=== PATIENT | female | born 1940 | race Caucasian/White ===

== ENCOUNTER 2017-07-31 12:10 | Emergency (ER) | payer MEDICARE, OTHER ==
[~2017-07-31] VITALS: Ht 157.5 cm; Wt 76.2 kg
[~2017-07-31 12:10] MED LIST: ASPI81EC PO; FAMO20 PO; NEBI5 PO; Zofran4 MG PO; [UNRECOGNIZED DRUG - OTHER]
[2017-07-31] MEDS ORDERED: BENZ100A PO (13:39)
== END 2017-07-31 14:10 | disposition home or self-care (01) ==
LOC: ER 12:10
DX: R05 Cough (principal); Z88.6 Allergy status to analgesic agent; Z91.041 Radiographic dye allergy status; Z88.2 Allergy status to sulfonamides; Z88.5 Allergy status to narcotic agent; Z88.8 Allergy status to other drugs, medicaments and biological substances; Z79.899 Other long term (current) drug therapy
CPT/HCPCS: 99282

== ENCOUNTER → 2021-02-24 | Outpatient (CLI) | payer MEDICARE, OTHER ==
[~2021-02-24] MED LIST changes: +AMOCLA875 PO; +BENZ100A PO; +Flagyl500 MG PO
[2021-02-25 09:52] LABS: C DIFFICILE DNA POSITIVE (Negative)
== END | disposition home or self-care (01) ==
LOC: LAB 11:45 → LAB SHORT 11:45
PROVIDERS: Physician Assistant Medical
DX: R19.7 Diarrhea, unspecified (principal)
CPT/HCPCS: 87324; 87493

== ENCOUNTER 2021-02-25 15:40 | Emergency (ER) | payer MEDICARE, OTHER ==
[~2021-02-25] VITALS: Ht 157.5 cm; Wt 74.8 kg
[~2021-02-25 15:40] MED LIST changes: -AMOCLA875 PO; -Flagyl500 MG PO
[2021-02-25 16:21] LABS: BASOPHILS ABSOLUTE AUTO 0.04 K/mm3 (0.00-0.23); BASOPHILS PERCENT AUTO 0 % (0-2); EOSINOPHILS ABSOLUTE AUTO 0.28 K/mm3 (0.00-0.68); EOSINOPHILS PERCENT AUTO 2 % (0-6); Hematocrit 39.4 % (33.0-51.0); IMMATURE GRAN ABSOLUTE AUTO 0.05 K/mm3 (0.00-0.10); IMMATURE GRAN PERCENT AUTO 0 % (0-1); LYMPHOCYTES PERCENT AUTO 20 % (21-46); MONOCYTES ABSOLUTE AUTO 1.33 K/mm3 (0.16-1.47); MONOCYTES PERCENT AUTO 11 % (4-13); Mean Corpuscular HGB 32.4 pg (26.0-34.0); Mean Corpuscular Volume 98 fL (80-100); Mean Platelet Volume 10.9 fL (9.1-12.4); NEUTROPHILS ABSOLUTE AUTO 7.73 K/mm3 (1.96-9.15); NEUTROPHILS PERCENT AUTO 65 % (41-73); NRBC ABSOLUTE 0.03 K/mm3 (0.00-0.02); NRBC Auto 0.3 /100 WBC (0.0-0.2); Platelet Count 207 K/mm3 (150-400); Red Blood Cell Count 4.01 M/mm3 (3.80-5.20); White Blood Cell Count 11.83 K/mm3 (4.00-11.30)
[2021-02-25 16:49] LABS: Albumin, Blood 3.4 g/dL (3.4-5.0); Albumin/Globulin Ratio 0.8 (0.8-1.8); Bilirubin, Total 0.4 mg/dL (0.1-1.0); Bun/Creatinine Ratio 11.7 (12.0-20.0); Calcium, Blood 8.4 mg/dL (8.5-10.1); Creatinine, Blood 0.94 mg/dL (0.40-1.00); Potassium, Blood 3.7 mmol/L (3.5-5.5); Total Protein, Blood 7.4 g/dL (6.4-8.2)
[2021-02-25 17:27] LABS: Source, Urine Clean Catch
[2021-02-25 17:32] LABS: Appearance, Urine Clear (Clear); Bilirubin, Urine Neg (Neg); Blood, Urine 2+ (Neg); Color, Urine Yellow (P-Yellow); Glucose Qualitative, Urine Neg (Neg); Ketones, Urine Neg (Neg); Leukocyte Esterase, Urine Neg (Neg); Nitrite, Urine Neg (Neg); Protein, Urine 2+ (Neg); Urobilinogen, Urine NORM (Normal)
[2021-02-25 18:05] LABS: Red Blood Cells, Urine 0-2 /hpf (0-2); Squamous Epithelial Cells Rare /hpf (Few)
[2021-02-25 18:08] LABS: Bacteria Few /hpf
[2021-02-25] MEDS ORDERED: Flagyl500 MG PO (19:44)
[2021-02-25] MEDS ORDERED: AMOCLA875 PO (19:44)
== END 2021-02-25 20:01 | disposition home or self-care (01) ==
LOC: ER 15:40
PROVIDERS: Physician Assistant
DX: K52.9 Noninfective gastroenteritis and colitis, unspecified (principal); K57.30 Diverticulosis of large intestine without perforation or abscess without bleeding; Z88.6 Allergy status to analgesic agent; Z88.2 Allergy status to sulfonamides; Z88.5 Allergy status to narcotic agent; Z88.8 Allergy status to other drugs, medicaments and biological substances; Z79.899 Other long term (current) drug therapy
CPT/HCPCS: 36415; 74177; 80053; 81001; 83690; 85025; 99284-25; A9270; Q9967

== ENCOUNTER 2022-12-16 09:50 | Emergency (ER) | payer MEDICARE, OTHER ==
[~2022-12-16] VITALS: Ht 157.5 cm; Wt 76.7 kg
[~2022-12-16 09:50] MED LIST changes: +AMOCLA875 PO; +Flagyl500 MG PO
[2022-12-16 12:33] LABS: BASOPHILS ABSOLUTE AUTO 0.06 K/mm3 (0.00-0.23); BASOPHILS PERCENT AUTO 1 % (0-2); EOSINOPHILS ABSOLUTE AUTO 0.06 K/mm3 (0.00-0.68); EOSINOPHILS PERCENT AUTO 1 % (0-6); Hematocrit 26.2 % (33.0-51.0); Hemoglobin 9.2 g/dL (11.5-16.0); IMMATURE GRAN ABSOLUTE AUTO 0.18 K/mm3 (0.00-0.10); IMMATURE GRAN PERCENT AUTO 1 % (0-1); LYMPHOCYTES ABSOLUTE AUTO 1.21 K/mm3 (0.84-5.20); LYMPHOCYTES PERCENT AUTO 9 % (21-46); MONOCYTES ABSOLUTE AUTO 1.75 K/mm3 (0.16-1.47); MONOCYTES PERCENT AUTO 14 % (4-13); Mean Corpuscular HGB 32.4 pg (26.0-34.0); Mean Corpuscular HGB Conc 35.1 g/dL (31.5-36.5); Mean Corpuscular Volume 92 fL (80-100); Mean Platelet Volume 10.7 fL (9.1-12.4); NEUTROPHILS ABSOLUTE AUTO 9.75 K/mm3 (1.96-9.15); NEUTROPHILS PERCENT AUTO 75 % (41-73); NRBC ABSOLUTE 0.09 K/mm3 (0.00-0.02); NRBC Auto 0.7 /100 WBC (0.0-0.2); Platelet Count 177 K/mm3 (150-400); RDW Coefficient Variation 17.7 % (11.7-14.2); Red Blood Cell Count 2.84 M/mm3 (3.80-5.20); White Blood Cell Count 13.01 K/mm3 (4.00-11.30)
[2022-12-16 12:51] LABS: Bun/Creatinine Ratio 15.5 (12.0-20.0); Calcium, Blood 8.1 mg/dL (8.5-10.1); Creatinine, Blood 1.1 mg/dL (0.40-1.00); Potassium, Blood 4.4 mmol/L (3.5-5.5)
[2022-12-16] MEDS ORDERED: METO10 PO (13:41)
[2022-12-16] MEDS ORDERED: DOC250 PO (13:41)
[2022-12-16 14:00] VITALS: BP 113/62
[2022-12-16 14:35] LABS: Calcium, Ionized (POC) 1.04 mmol/L (1.10-1.46); Chloride (POC) 92 mmol/L (98-108); Creatinine (POC) 1.1 mg/dL (0.6-1.0); Glucose (ISTAT POC) 96 mg/dL (70-99); Hemoglobin (POC) 9.5 g/dL (12.0-16.0); Potassium (POC) 4.3 mmol/L (3.5-5.5); Sodium (POC) 123 mmol/L (135-148); Total CO2 (POC) 21 mmol/L (21-32)
[2022-12-16] MEDS ORDERED: METOPROLOL TART25 MG PO (15:09)
[2022-12-16] MEDS ORDERED: OXYC5 PO (15:10)
[2022-12-16] MEDS ORDERED: Dilaudid 2 mg Ta2 MG PO (15:10)
== END 2022-12-16 15:11 | disposition home or self-care (01) ==
LOC: ER 09:50
PROVIDERS: Emergency Medicine
DX: K91.89 Other postprocedural complications and disorders of digestive system (principal); K56.7 Ileus, unspecified; E87.1 Hypo-osmolality and hyponatremia; Z88.6 Allergy status to analgesic agent; Z88.5 Allergy status to narcotic agent; Z88.2 Allergy status to sulfonamides; Z88.8 Allergy status to other drugs, medicaments and biological substances; Z79.899 Other long term (current) drug therapy; K21.9 Gastro-esophageal reflux disease without esophagitis
CPT/HCPCS: 74018; 80047; 80048; 85014; 85025; 96361; 96374; 99284-25; J2765; J7030

== ENCOUNTER 2023-12-22 19:14 | Emergency (ER) | payer MEDICARE, OTHER ==
[~2023-12-22] VITALS: Ht 157.5 cm; Wt 72.6 kg
[~2023-12-22 19:14] MED LIST changes: +DOC250 PO; +Dilaudid 2 mg Ta2 MG PO; +METO10 PO; +METOPROLOL TART25 MG PO; +OXYC5 PO; +TRAM50 PO
[2023-12-22 20:02] LABS: BASOPHILS ABSOLUTE AUTO 0.03 K/mm3 (0.00-0.23); BASOPHILS PERCENT AUTO 0 % (0-2); EOSINOPHILS ABSOLUTE AUTO 0.33 K/mm3 (0.00-0.68); EOSINOPHILS PERCENT AUTO 3 % (0-6); Hemoglobin 12.2 g/dL (11.5-16.0); IMMATURE GRAN ABSOLUTE AUTO 0.08 K/mm3 (0.00-0.10); IMMATURE GRAN PERCENT AUTO 1 % (0-1); LYMPHOCYTES ABSOLUTE AUTO 2.52 K/mm3 (0.84-5.20); LYMPHOCYTES PERCENT AUTO 21 % (21-46); MONOCYTES PERCENT AUTO 11 % (4-13); Mean Corpuscular Volume 100 fL (80-100); Mean Platelet Volume 10.8 fL (9.1-12.4); NEUTROPHILS ABSOLUTE AUTO 7.84 K/mm3 (1.96-9.15); NEUTROPHILS PERCENT AUTO 65 % (41-73); NRBC ABSOLUTE 0.02 K/mm3 (0.00-0.02); NRBC Auto 0.2 /100 WBC (0.0-0.2); Platelet Count 233 K/mm3 (150-400); RDW Coefficient Variation 18.7 % (11.7-14.2); RDW Standard Deviation 70.3 fL (35.1-46.3)
[2023-12-22 20:27] LABS: Albumin, Blood 3.7 g/dL (3.4-5.0); Bilirubin, Total 0.5 mg/dL (0.1-1.0); Bun/Creatinine Ratio 14.2 (12.0-20.0); Calcium, Blood 8.7 mg/dL (8.5-10.1); Creatinine, Blood 1.69 mg/dL (0.40-1.00); Globulin, Blood 3.6 g/dL (2.2-4.0); Potassium, Blood 4.4 mmol/L (3.5-5.5); Total Protein, Blood 7.3 g/dL (6.4-8.2)
[2023-12-22 21:36] VITALS: BP 110/79
[2023-12-22 21:45] LABS: Source, Urine Clean Catch
[2023-12-22 21:54] LABS: Appearance, Urine Clear (Clear); Bilirubin, Urine Neg (Neg); Blood, Urine Neg (Neg); Glucose Qualitative, Urine Neg (Neg); Ketones, Urine Neg (Neg); Leukocyte Esterase, Urine Neg (Neg); Nitrite, Urine Neg (Neg); Protein, Urine Neg (Neg); Specific Gravity, Urine 1.015 (1.003-1.022); Urobilinogen, Urine NORM (Normal)
[2023-12-22 22:08] LABS: Color, Urine Pale Yellow (P-Yellow)
[2023-12-22] MEDS ORDERED: NS 1,000 ML IV SCH (22:40)
[2023-12-22] MEDS ORDERED: Amoxicillin/Clavulanate K 875 MG Tab PO ONE (23:05)
[2023-12-22] MEDS ORDERED: RX Prepack 2 Tabs Ondansetron ODT 4MG UD ONE (23:05)
[2023-12-22] MEDS ORDERED: AMOCLA875 PO (23:06)
[2023-12-22] MEDS ORDERED: ONDA4ODT MM (23:06)
[2023-12-22] MEDS ORDERED: METR500 PO (23:33)
== END 2023-12-22 23:36 | disposition home or self-care (01) ==
LOC: ER 19:14
PROVIDERS: Physician Assistant
DX: K57.32 Diverticulitis of large intestine without perforation or abscess without bleeding (principal); Z88.6 Allergy status to analgesic agent; Z88.8 Allergy status to other drugs, medicaments and biological substances; Z88.2 Allergy status to sulfonamides; Z88.5 Allergy status to narcotic agent; Z79.899 Other long term (current) drug therapy; K21.9 Gastro-esophageal reflux disease without esophagitis
CPT/HCPCS: 74176; 80053; 81003; 83690; 85025; 99284-25; A9270

== ENCOUNTER 2024-01-19 08:21 | Emergency (ER) | payer MEDICARE, OTHER ==
[~2024-01-19] VITALS: Ht 157.5 cm; Wt 69.4 kg
[~2024-01-19 08:21] MED LIST changes: +METR500 PO; +ONDA4ODT MM
[2024-01-19 09:33] LABS: BASOPHILS ABSOLUTE AUTO 0.03 K/mm3 (0.00-0.23); BASOPHILS PERCENT AUTO 0 % (0-2); EOSINOPHILS ABSOLUTE AUTO 0.29 K/mm3 (0.00-0.68); EOSINOPHILS PERCENT AUTO 3 % (0-6); Hematocrit 37.6 % (33.0-51.0); Hemoglobin 12.4 g/dL (11.5-16.0); IMMATURE GRAN ABSOLUTE AUTO 0.05 K/mm3 (0.00-0.10); IMMATURE GRAN PERCENT AUTO 1 % (0-1); LYMPHOCYTES ABSOLUTE AUTO 2.37 K/mm3 (0.84-5.20); LYMPHOCYTES PERCENT AUTO 26 % (21-46); MONOCYTES PERCENT AUTO 11 % (4-13); Mean Corpuscular HGB 32.1 pg (26.0-34.0); Mean Corpuscular Volume 97 fL (80-100); Mean Platelet Volume 11.2 fL (9.1-12.4); NEUTROPHILS ABSOLUTE AUTO 5.41 K/mm3 (1.96-9.15); NEUTROPHILS PERCENT AUTO 59 % (41-73); NRBC ABSOLUTE 0.04 K/mm3 (0.00-0.02); NRBC Auto 0.4 /100 WBC (0.0-0.2); Platelet Count 265 K/mm3 (150-400); RDW Coefficient Variation 18.2 % (11.7-14.2); RDW Standard Deviation 65.2 fL (35.1-46.3); Red Blood Cell Count 3.86 M/mm3 (3.80-5.20); White Blood Cell Count 9.15 K/mm3 (4.00-11.30)
[2024-01-19] MEDS ORDERED: NS 1,000 ML IV SCH (09:45)
[2024-01-19 09:59] LABS: Albumin, Blood 3.7 g/dL (3.4-5.0); Albumin/Globulin Ratio 1.1 (0.8-1.8); Bilirubin, Total 0.4 mg/dL (0.1-1.0); Creatinine, Blood 1.08 mg/dL (0.40-1.00); Globulin, Blood 3.5 g/dL (2.2-4.0); Potassium, Blood 4.2 mmol/L (3.5-5.5); Total Protein, Blood 7.2 g/dL (6.4-8.2)
[2024-01-19 11:32] LABS: Source, Urine Clean Catch
[2024-01-19 11:45] LABS: Appearance, Urine Clear (Clear); Bilirubin, Urine Neg (Neg); Blood, Urine Neg (Neg); Color, Urine Yellow (P-Yellow); Glucose Qualitative, Urine Neg (Neg); Ketones, Urine Neg (Neg); Leukocyte Esterase, Urine Neg (Neg); Nitrite, Urine Neg (Neg); Protein, Urine Neg (Neg); Urobilinogen, Urine NORM (Normal)
[2024-01-19] MEDS ORDERED: DICY20 PO (12:30)
[2024-01-19 12:34] VITALS: BP 106/69
== END 2024-01-19 12:39 | disposition home or self-care (01) ==
LOC: ER 08:21
PROVIDERS: Student in an Organized Health Care Education/Training Program
DX: K52.9 Noninfective gastroenteritis and colitis, unspecified (principal); Z88.8 Allergy status to other drugs, medicaments and biological substances; Z88.5 Allergy status to narcotic agent; Z88.2 Allergy status to sulfonamides; Z79.899 Other long term (current) drug therapy
CPT/HCPCS: 74177; 80053; 81003; 83690; 85025; 99284-25; J7030; Q9967

== ENCOUNTER 2024-04-30 12:30 | Inpatient (IN) | payer MEDICARE, OTHER ==
[~2024-04-30] VITALS: Ht 157.5 cm; Wt 73.4 kg
[~2024-04-30 12:30] MED LIST changes: +DICY20 PO; +GABA100 PO; +Prinivil10 MG PO
[2024-05-21] MEDS ORDERED: FAMO20 PO (18:01)
[2024-05-23] VITALS (15 sets, daily range): BP systolic 93–126; BP diastolic 59–84
[2024-05-23] MEDS ORDERED: OxyCODONE HCL 10 MG TABCR PO SCH (12:55)
[2024-05-23] MEDS ORDERED: Chlorhexidine Mouth Care 15 ML UDC MT SCH (12:55)
[2024-05-23] MEDS ORDERED: CeFAZolin Sodium 2,000 MG in NS 100 ML IV SCH ×2 (12:55→23:30)
[2024-05-23] MEDS ORDERED: Acetaminophen 500 MG Tab PO SCH (12:55)
[2024-05-23] MEDS ORDERED: Lactated Ringer's 1,000 ML IV SCH ×2 (12:55→16:25)
[2024-05-23] MEDS ORDERED: Ropivacaine 0.5% HCl/Pf 123.125 MG,EPINEPHrine HCL 0.25 MG,Ketorolac Tromethamine 15 MG... INFIL SCH (12:55)
[2024-05-23] MEDS ORDERED: Tranexamic Acid 100 ML IV SCH (13:04)
[2024-05-23] MEDS ORDERED: CeFAZolin Sodium 2,000 MG VIAL ONE (14:38)
--- NOTE | 2024-05-23 14:40 | NUR ---
DR ROSA VERBALIZED OK FOR JOINT COCKTAIL WITH TORADOL EVEN WITH ASA HIVE ALLERGY, PHARMACY NOTIFIED
[2024-05-23] MEDS ORDERED: FentaNYL Citrate 50 MCG/ML 2 ML Injection ONE (14:59)
[2024-05-23] MEDS ORDERED: Midazolam HCl 1MG / ML 2ML Vial ONE (14:59)
[2024-05-23] MEDS ORDERED: Dexamethasone Sod Phos 10 MG/ML 1ML VIAL ONE (15:01)
[2024-05-23] MEDS ORDERED: propofoL 100 ML IV ONE (15:01)
[2024-05-23] MEDS ORDERED: Ondansetron HCl 2 MG / ML 2ML Vial ONE (15:01)
[2024-05-23] MEDS ORDERED: Bupivacaine 0.75%/Dext 8.25% 2 ML Amp IT ONE (15:02)
[2024-05-23] MEDS ORDERED: FentaNYL Citrate 50 MCG/ML 2 ML Injection IV PRN ×3 (15:45→15:50)
[2024-05-23] MEDS ORDERED: HYDROmorphone HCl/Pf 1MG SYR IV PRN ×2 (15:50→16:20)
[2024-05-23] MEDS ORDERED: Phenylephrine HCl 100 MCG/ML-NS 10MLSYR (1MG/10ML) ONE (16:09)
[2024-05-23] MEDS ORDERED: FLU VACC TS2024-25(6MOS UP)/PF 45 MCG/0.5 ML SYRINGE IM SCH (16:20)
[2024-05-23] MEDS ORDERED: DiphenhydrAMINE HCL 25 MG Cap PO PRN (16:20)
[2024-05-23] MEDS ORDERED: Promethazine HCl 25 MG Tab PO PRN (16:20)
[2024-05-23] MEDS ORDERED: Bisacodyl 10 MG Supp PR PRN (16:20)
[2024-05-23] MEDS ORDERED: Ondansetron HCl 2 MG / ML 2ML Vial IV PRN (16:25)
[2024-05-23] MEDS ORDERED: Metoclopramide HCl 5MG / ML 2ML Vial IV PRN (16:25)
[2024-05-23] MEDS ORDERED: Magnesium Hydroxide Conc 10 ML UDC PO PRN (16:25)
[2024-05-23] MEDS ORDERED: HYDROmorphone HCl 2 MG Tab PO PRN (16:25)
--- NOTE | 2024-05-23 18:25 | NUR ---
POST-OP ARRIVAL TO ROOM @1750, VITALS STARTED. IV RUNNING. DECREASED SENSATION TO BILAT LE, DENIES PAIN. AQUACEL AND MARIJA WRAP TO R KNEE, C/D/I. TOLERATING SIPS OF CL. DID GIVE ONE DOSE OF REGLAN TO PREVENT NAUSEA. PATIENT RESTING AT THIS TIME. 2L NC, SATS ABOVE 93%. CALL LIGHT IS IN REACH.
[2024-05-23] MEDS ORDERED: Docusate Sodium 100 MG Cap PO SCH (21:00)
[2024-05-23] MEDS ORDERED: Gabapentin 100 MG Cap PO SCH (21:00)
[2024-05-24] MEDS ORDERED: Acetaminophen 500 MG Tab PO SCH
[2024-05-24 04:56] VITALS: BP 109/78
[2024-05-24 05:05] LABS: BASOPHILS PERCENT AUTO 0 % (0-2); EOSINOPHILS PERCENT AUTO 0 % (0-6); Hematocrit 30.4 % (33.0-51.0); Hemoglobin 9.9 g/dL (11.5-16.0); IMMATURE GRAN ABSOLUTE AUTO 0.03 K/mm3 (0.00-0.10); IMMATURE GRAN PERCENT AUTO 1 % (0-1); LYMPHOCYTES ABSOLUTE AUTO 0.86 K/mm3 (0.84-5.20); LYMPHOCYTES PERCENT AUTO 13 % (21-46); MONOCYTES ABSOLUTE AUTO 0.19 K/mm3 (0.16-1.47); MONOCYTES PERCENT AUTO 3 % (4-13); Mean Corpuscular HGB 31.9 pg (26.0-34.0); Mean Corpuscular HGB Conc 32.6 g/dL (31.5-36.5); Mean Corpuscular Volume 98 fL (80-100); Mean Platelet Volume 11.7 fL (9.1-12.4); NEUTROPHILS ABSOLUTE AUTO 5.58 K/mm3 (1.96-9.15); NEUTROPHILS PERCENT AUTO 84 % (41-73); Platelet Count 205 K/mm3 (150-400); RDW Coefficient Variation 18.1 % (11.7-14.2); RDW Standard Deviation 66.8 fL (35.1-46.3); White Blood Cell Count 6.66 K/mm3 (4.00-11.30)
--- NOTE | 2024-05-24 05:25 | NUR ---
SHIFT SUMMARY KWAN WAS ALERT AND FULLY ORIENTED ON ASSESMENT. DRESSING C/D/I, PAIN WELL MANAGED. PT AMBULATING AND VOIDING APPROPRIATELY. CIRCULATION AND SENSATION INTACT TO FEET. NO ACUTE EVENTS NO NOTED CHANGES TO PT CONDITION
[2024-05-24 05:59] LABS: Bun/Creatinine Ratio 23.4 (12.0-20.0); Calcium, Blood 8.6 mg/dL (8.5-10.1); Creatinine, Blood 1.24 mg/dL (0.40-1.00); Potassium, Blood 5.9 mmol/L (3.5-5.5)
[2024-05-24 07:33] VITALS: BP 96/61
[2024-05-24 08:22] VITALS: BP 102/72
[2024-05-24] MEDS ORDERED: Metoprolol Tartrate 25 MG Tab PO SCH (09:00)
[2024-05-24] MEDS ORDERED: Aspirin 81 MG Chew PO SCH (09:00)
[2024-05-24] MEDS ORDERED: Lisinopril 10 MG Tab PO SCH (09:00)
[2024-05-24] MEDS ORDERED: Famotidine 20 MG Tab PO SCH (09:00)
[2024-05-24] MEDS ORDERED: ASPI81CH PO (09:20)
--- NOTE | 2024-05-24 10:38 | NUR ---
DISCHARGE PT EDUCATED ON AND RECEIVED PRINTED DC INSTRUCTIONS AND VERBALIZED AN UNDERSTANDING. IV DC'D. EXTRA DRESSINGS GIVEN TO PT. PT GATHERED ALL PERSONAL BELONGINGS AND ESCORTED OUT VIA W/C TO VEHICLE. TO TAKE PT HOME.
[2024-05-25] MEDS ORDERED: HYDMOR2 PO (15:10)
[2024-05-25] MEDS ORDERED: ONDA4ODT MM (15:10)
== END 2024-05-24 10:33 | disposition home or self-care (01) | DRG 489 ==
LOC: PRE IP 05-14 10:00 → MEDS 05-23 13:48 → SURS 05-23 14:05
PROVIDERS: ADMIT Orthopaedic Surgery
PROC: 0SPC09Z Removal of Liner from Right Knee Joint, Open Approach (ICD-10-PCS; 2024-05-23)
PROC: 0SUV09Z Supplement Right Knee Joint, Tibial Surface with Liner, Open Approach (ICD-10-PCS; 2024-05-23)
PROC: 0SBC0ZZ Excision of Right Knee Joint, Open Approach (ICD-10-PCS; principal; 2024-05-23 15:00)
DX: M24.661 Ankylosis, right knee (principal); I10 Essential (primary) hypertension; K21.9 Gastro-esophageal reflux disease without esophagitis; Z96.651 Presence of right artificial knee joint; Z88.8 Allergy status to other drugs, medicaments and biological substances; Z88.5 Allergy status to narcotic agent
CPT/HCPCS: 36415; 73560-RT; 80048; 85025; 97110; 97116; 97530; A9270; C1776; J0171; J0690; J0735; J1100; J1885; J2250; J2371; J2405; J2704; J2765; J2795; J3010; J7120

== ENCOUNTER 2024-05-25 08:15 | Emergency (ER) | payer MEDICARE, OTHER ==
[~2024-05-25] VITALS: Ht 157.5 cm; Wt 72.6 kg
[~2024-05-25 08:15] MED LIST changes: +ASPI81CH PO
[2024-05-25 09:52] LABS: BASOPHILS ABSOLUTE AUTO 0.02 K/mm3 (0.00-0.23); BASOPHILS PERCENT AUTO 0 % (0-2); EOSINOPHILS ABSOLUTE AUTO 0.14 K/mm3 (0.00-0.68); EOSINOPHILS PERCENT AUTO 1 % (0-6); Hemoglobin 9.8 g/dL (11.5-16.0); IMMATURE GRAN ABSOLUTE AUTO 0.08 K/mm3 (0.00-0.10); IMMATURE GRAN PERCENT AUTO 1 % (0-1); LYMPHOCYTES ABSOLUTE AUTO 1.49 K/mm3 (0.84-5.20); LYMPHOCYTES PERCENT AUTO 10 % (21-46); MONOCYTES ABSOLUTE AUTO 1.62 K/mm3 (0.16-1.47); MONOCYTES PERCENT AUTO 11 % (4-13); Mean Corpuscular HGB 32.3 pg (26.0-34.0); Mean Corpuscular HGB Conc 33.8 g/dL (31.5-36.5); Mean Corpuscular Volume 96 fL (80-100); Mean Platelet Volume 11.2 fL (9.1-12.4); NEUTROPHILS ABSOLUTE AUTO 11.18 K/mm3 (1.96-9.15); NEUTROPHILS PERCENT AUTO 77 % (41-73); NRBC ABSOLUTE 0.03 K/mm3 (0.00-0.02); NRBC Auto 0.2 /100 WBC (0.0-0.2); Platelet Count 196 K/mm3 (150-400); RDW Coefficient Variation 18.4 % (11.7-14.2); RDW Standard Deviation 64.7 fL (35.1-46.3); Red Blood Cell Count 3.03 M/mm3 (3.80-5.20); White Blood Cell Count 14.53 K/mm3 (4.00-11.30)
[2024-05-25 10:16] LABS: Albumin, Blood 3.7 g/dL (3.4-5.0); Albumin/Globulin Ratio 1.2 (0.8-1.8); Bilirubin, Total 0.8 mg/dL (0.1-1.0); Bun/Creatinine Ratio 23.9 (12.0-20.0); Calcium, Blood 8.6 mg/dL (8.5-10.1); Creatinine, Blood 1.17 mg/dL (0.40-1.00); Globulin, Blood 3.1 g/dL (2.2-4.0); Potassium, Blood 4.2 mmol/L (3.5-5.5); Total Protein, Blood 6.8 g/dL (6.4-8.2)
[2024-05-25 10:25] LABS: Source, Urine Clean Catch
[2024-05-25 10:44] LABS: Appearance, Urine Clear (Clear); Bilirubin, Urine Neg (Neg); Blood, Urine Neg (Neg); Glucose Qualitative, Urine Neg (Neg); Ketones, Urine Neg (Neg); Leukocyte Esterase, Urine Neg (Neg); Nitrite, Urine Neg (Neg); Protein, Urine Neg (Neg); Specific Gravity, Urine 1.015 (1.003-1.022); Urobilinogen, Urine NORM (Normal)
[2024-05-25 10:51] LABS: Color, Urine Pale Yellow (P-Yellow)
[2024-05-25] MEDS ORDERED: Acetaminophen 325 MG TABLET PO ONE (12:00)
[2024-05-25 12:48] LABS: CORONAVIRUS COVID-19 AG Negative (NEGATIVE); INFLUENZA A AG Negative (NEGATIVE); INFLUENZA B AG Negative (NEGATIVE)
[2024-05-25] MEDS ORDERED: HYDROmorphone HCl 2 MG Tab PO ONE (13:40)
[2024-05-25] MEDS ORDERED: Ondansetron HCl 2 MG / ML 2ML Vial IV ONE (13:45)
[2024-05-25 13:58] VITALS: BP 100/58
[2024-05-25 14:25] LABS: Adenovirus Not Detected (NOT DETECT); Bordetella pertussis Not Detected (NOT DETECT); Chlamydophila pneumoniae Not Detected (NOT DETECT); Coronavirus 229E Not Detected (NOT DETECT); Coronavirus HKU1 Not Detected (NOT DETECT); Coronavirus NL63 Not Detected (NOT DETECT); Coronavirus OC43 Not Detected (NOT DETECT); Human Metapneumovirus Not Detected (NOT DETECT); Human Rhinovirus/Enterovirus Not Detected (NOT DETECT); Influenza A/2009-H1 Not Detected (NOT DETECT); Influenza A/H1 Not Detected (NOT DETECT); Influenza A/H3 Not Detected (NOT DETECT); Influenza B Not Detected (NOT DETECT); Mycoplasma pneumoniae Not Detected (NOT DETECT); Parainfluenza Virus 1 Not Detected (NOT DETECT); Parainfluenza Virus 2 Not Detected (NOT DETECT); Parainfluenza Virus 3 Not Detected (NOT DETECT); Parainfluenza Virus 4 Not Detected (NOT DETECT); Respiratory Syncytial Virus Not Detected (NOT DETECT); SARS-Cov-2 (COVID-19), BioFire Not Detected (NOT DETECT)
[2024-05-25] MEDS ORDERED: HYDMOR2 PO (15:10)
[2024-05-25] MEDS ORDERED: ONDA4ODT MM (15:10)
== END 2024-05-25 15:46 | disposition home or self-care (01) ==
LOC: ER 08:15
PROVIDERS: Emergency Medicine; Student in an Organized Health Care Education/Training Program
DX: R68.83 Chills (without fever) (principal); R68.89 Other general symptoms and signs; K21.9 Gastro-esophageal reflux disease without esophagitis; Z79.82 Long term (current) use of aspirin; Z79.899 Other long term (current) drug therapy; Z88.2 Allergy status to sulfonamides; Z88.5 Allergy status to narcotic agent; Z88.6 Allergy status to analgesic agent; Z88.8 Allergy status to other drugs, medicaments and biological substances
CPT/HCPCS: 0202U; 36415; 71045; 80053; 81003; 84145; 85025; 87040; 87428-QW; 93005; 93010; 96374; 99284-25; A9270; J2405

== ENCOUNTER 2024-05-28 13:45 | Inpatient (IN) | payer MEDICARE, OTHER ==
[~2024-05-28] VITALS: Ht 157.5 cm; Wt 80.4 kg
[~2024-05-28 13:45] MED LIST changes: +HYDMOR2 PO
[2024-05-28 16:10] LABS: Albumin, Blood 2.9 g/dL (3.4-5.0); Albumin/Globulin Ratio 0.7 (0.8-1.8); Bilirubin, Total 0.7 mg/dL (0.1-1.0); Bun/Creatinine Ratio 11.5 (12.0-20.0); Calcium, Blood 8.6 mg/dL (8.5-10.1); Creatinine, Blood 2.34 mg/dL (0.40-1.00); Potassium, Blood 4.4 mmol/L (3.5-5.5); Total Protein, Blood 6.9 g/dL (6.4-8.2)
[2024-05-28 16:50] LABS: BASOPHILS ABSOLUTE AUTO 0.15 K/mm3 (0.00-0.23); BASOPHILS PERCENT AUTO 1 % (0-2); EOSINOPHILS ABSOLUTE AUTO 0.01 K/mm3 (0.00-0.68); EOSINOPHILS PERCENT AUTO 0 % (0-6); Hematocrit 30.8 % (33.0-51.0); Hemoglobin 10.4 g/dL (11.5-16.0); IMMATURE GRAN ABSOLUTE AUTO 0.67 K/mm3 (0.00-0.10); IMMATURE GRAN PERCENT AUTO 3 % (0-1); LYMPHOCYTES PERCENT AUTO 3 % (21-46); MONOCYTES ABSOLUTE AUTO 1.96 K/mm3 (0.16-1.47); MONOCYTES PERCENT AUTO 7 % (4-13); Mean Corpuscular HGB 32.5 pg (26.0-34.0); Mean Corpuscular HGB Conc 33.8 g/dL (31.5-36.5); Mean Corpuscular Volume 96 fL (80-100); NEUTROPHILS ABSOLUTE AUTO 22.87 K/mm3 (1.96-9.15); NEUTROPHILS PERCENT AUTO 87 % (41-73); NRBC ABSOLUTE 0.05 K/mm3 (0.00-0.02); NRBC Auto 0.2 /100 WBC (0.0-0.2); Platelet Count 255 K/mm3 (150-400); RDW Coefficient Variation 18.6 % (11.7-14.2); RDW Standard Deviation 66.3 fL (35.1-46.3); White Blood Cell Count 26.36 K/mm3 (4.00-11.30)
[2024-05-28] MEDS ORDERED: Lactated Ringer's 1,000 ML IV SCH ×3 (19:15→21:35)
[2024-05-28] MEDS ORDERED: Ondansetron HCl 2 MG / ML 2ML Vial IV PRN (21:30)
[2024-05-28] MEDS ORDERED: FentaNYL Citrate 50 MCG/ML 2 ML Injection IV PRN (21:40)
[2024-05-28] MEDS ORDERED: Piperacillin/Tazobactam Sod 3.375 GM in NS 100 ML IV SCH (22:01)
--- NOTE | 2024-05-28 23:13 | NUR ---
REPORT RECEIVED FROM EREN (PRESIDENT AND CEO) AND AWAITING PT T/F TO ROOM 327.
[2024-05-28] MEDS ORDERED: GABA100 PO (23:38)
[2024-05-29 00:51] LABS: Source, Urine Clean Catch
[2024-05-29 00:59] LABS: Bilirubin, Urine Neg (Neg); Blood, Urine 2+ (Neg); Glucose Qualitative, Urine Neg (Neg); Ketones, Urine 1+ (Neg); Leukocyte Esterase, Urine 1+ (Neg); Nitrite, Urine Neg (Neg); Protein, Urine 2+ (Neg); Specific Gravity, Urine 1.015 (1.003-1.022); Urobilinogen, Urine NORM (Normal)
[2024-05-29 01:09] LABS: Appearance, Urine Hazy (Clear); Color, Urine Yellow (P-Yellow)
[2024-05-29 01:10] LABS: Amorphous Mod (0-Heavy); Bacteria Mod /hpf; Granular Casts 25-50 /lpf (0); Squamous Epithelial Cells Few /hpf (Few); Transitional Epithelial Cells Few /hpf (0-Rare)
[2024-05-29] MEDS ORDERED: Metoprolol Succinate 25 MG TABCR PO SCH (01:30)
[2024-05-29 02:16] LABS: Source, Urine Straight Cath
[2024-05-29 02:17] LABS: Bilirubin, Urine Neg (Neg); Blood, Urine 1+ (Neg); Glucose Qualitative, Urine Neg (Neg); Ketones, Urine 1+ (Neg); Leukocyte Esterase, Urine Neg (Neg); Nitrite, Urine Neg (Neg); Protein, Urine 2+ (Neg); Urobilinogen, Urine NORM (Normal)
[2024-05-29 02:22] LABS: Adenovirus F 40/41 Not Detected (NOT DETECT); Astrovirus Not Detected (NOT DETECT); Campylobacter Sp Not Detected (NOT DETECT); Cryptosporidium Not Detected (NOT DETECT); Cyclospora Cayetanensis Not Detected (NOT DETECT); E. Coli O157 Not Detected (NOT DETECT); Entamoeba Histolytica Not Detected (NOT DETECT); Enteroaggregative E. coli-EAEC Not Detected (NOT DETECT); Enteropathogenic E. coli-EPEC Not Detected (NOT DETECT); Enterotoxigenic E. coli-ETEC Not Detected (NOT DETECT); Giardia Lamblia Not Detected (NOT DETECT); Norovirus GI/GII Not Detected (NOT DETECT); Plesiomonas Shigelloides Not Detected (NOT DETECT); Rotavirus A Not Detected (NOT DETECT); Salmonella Sp Not Detected (NOT DETECT); Sapovirus Not Detected (NOT DETECT); Shiga Toxin-prod E. coli-STEC Not Detected (NOT DETECT); Shigella/Enteroin E. coli-EIEC Not Detected (NOT DETECT); Vibrio Cholerae Not Detected (NOT DETECT); Vibrio Sp Not Detected (NOT DETECT); Yersinia Enterocolitica Not Detected (NOT DETECT)
--- NOTE | 2024-05-29 02:32 | NUR ---
PT RETAINING URINE. ORDER OBTAINED BY PRIMARY NURSE FOR STRAGHT CATH >300MLS. BLADDER SCAN WITH OVER 400MLS. PT UNABLE TO URINATE. STRAIGHT CATH PERFORMED USING STERILE TECHNIQUE. PT TOLERATED WELL. URINE DARK AND CLOUDY. PT HAD ORDER FOR URINE SAMPLE--SMALL VOIDED URINE SAMPLE SENT TO LAB PREVIOUSLY POSITVE FOR UA AND CURLTURE. CONCERN FOR SAMPLE WAS SMALL AND LIKELY CONTAMINATED. NEW SAMPLE OBTAINED WITH STRAIGHT CATH AND SENT TO LAB. CALLED LAB TO REQUEST CANCEL ON PREVIOUS SPECIMEN; REQUEST UA AND CULT IF INDICATED OF NEW UA.
[2024-05-29 02:36] LABS: Appearance, Urine Clear (Clear); Color, Urine Yellow (P-Yellow)
[2024-05-29 02:38] LABS: Amorphous Mod (0-Heavy); Bacteria Few /hpf; Red Blood Cells, Urine 0-2 /hpf (0-2); Squamous Epithelial Cells Rare /hpf (Few); White Blood Cells, Urine Not Seen /hpf (0-5)
[2024-05-29 03:21] VITALS: BP 97/63
--- NOTE | 2024-05-29 05:21 | NUR ---
ADMISSION AND SUMMARY: REPORT RECEIVED FROM EREN (SUPERVISOR WOUND) AND PT T/F VIA GURNEY TO ROOM 327 AT 2324. SHE'S A/OX4, WAS ORIENTED TO ROOM AND CALL SYSTEM AND IS PLEASANT AND COOPERATIVE W/CARE. PT HAD RECENT REVISION OF R.KNEE ARTHROPLASTY W/INCISION AND AQUACEL DX REMAINING C/D/I. RLE IS NOW SWOLLEN W/DIFFUSE REDNESS SURROUNDING KNEE FROM THIGH TO ANKLE AND ROM IS LIMITED TO HER KNEE. SHE'S UP W/1-2PA TO [facility] AND ATTEMPTED FEMALE URINAL FOR URGE/STRESS INCONTINENCE. PT REPORTED DIFFICULTY EMPTYING BLADDER AND WAS OBSERVED VOIDING FREQ.SMALL AMTS AT A TIME. BLADDER SCAN SHOWED 406 MLS RETAINED. MADE AWARE W/BLADDER SCAN AND ST.CATH PARAMETERS RX'D. SEE ST.CATH DETAILS IN PRIOR RN NOTE. URINE SPECIMEN WAS SENT AND GI PANEL STOOL COLLECTION WAS COMPLETED WELL. DIARRHEA PERSISTS AND PT APPEARS TO HAVE C.DIFF, CONTACT ISO IN PROGRESS. RX'D HOME MEDS AND METOPROLOL WAS RECEIVED FOR HR 1OO'S. LR COMMENCED AT 150 MLS/HR AND STAFF MONITORING FOR S/S CONT'D RETENTION. SHE WAS MADE NPO X MEDS AT PA PENDING ORTHO CONSULT W/CX CALLED TO ANS.SERVICE. VSS/AFEBRILE, NO ACUTE CHANGES. WCTM AND REPORT TO DAY RN.
[2024-05-29 05:42] LABS: Albumin, Blood 2.4 g/dL (3.4-5.0); Albumin/Globulin Ratio 0.8 (0.8-1.8); Bilirubin, Total 0.7 mg/dL (0.1-1.0); Calcium, Blood 7.7 mg/dL (8.5-10.1); Creatinine, Blood 2.07 mg/dL (0.40-1.00); Globulin, Blood 3.2 g/dL (2.2-4.0); Magnesium, Blood 1.9 mg/dL (1.6-2.4); Potassium, Blood 4.8 mmol/L (3.5-5.5); Total Protein, Blood 5.6 g/dL (6.4-8.2)
[2024-05-29 06:52] LABS: BASOPHILS ABSOLUTE AUTO 0.04 K/mm3 (0.00-0.23); BASOPHILS PERCENT AUTO 0 % (0-2); EOSINOPHILS ABSOLUTE AUTO 0.07 K/mm3 (0.00-0.68); EOSINOPHILS PERCENT AUTO 0 % (0-6); Hemoglobin 8.5 g/dL (11.5-16.0); IMMATURE GRAN ABSOLUTE AUTO 0.45 K/mm3 (0.00-0.10); IMMATURE GRAN PERCENT AUTO 2 % (0-1); LYMPHOCYTES PERCENT AUTO 3 % (21-46); MONOCYTES PERCENT AUTO 9 % (4-13); Mean Corpuscular HGB 32.2 pg (26.0-34.0); Mean Corpuscular Volume 95 fL (80-100); Mean Platelet Volume 10.9 fL (9.1-12.4); NEUTROPHILS ABSOLUTE AUTO 16.75 K/mm3 (1.96-9.15); NEUTROPHILS PERCENT AUTO 85 % (41-73); NRBC ABSOLUTE 0.02 K/mm3 (0.00-0.02); NRBC Auto 0.1 /100 WBC (0.0-0.2); Platelet Count 234 K/mm3 (150-400); RDW Coefficient Variation 18.2 % (11.7-14.2); RDW Standard Deviation 63.2 fL (35.1-46.3); Red Blood Cell Count 2.64 M/mm3 (3.80-5.20); White Blood Cell Count 19.71 K/mm3 (4.00-11.30)
[2024-05-29 07:13] VITALS: BP 106/62
[2024-05-29] MEDS ORDERED: Lactobacil 2-S.Thermo-Bifido 1 1 Cap PO SCH (09:00)
[2024-05-29] MEDS ORDERED: Heparin Sodium 5000 Units/ML 1ML MDV SC SCH (09:00)
[2024-05-29] MEDS ORDERED: NS 250 ML IV PRN (12:25)
--- NOTE | 2024-05-29 12:39 | NUR ---
Upon receiving a referral for spiritual care, I visited the patient. She is lying in bed and has her dtr Michaela bedside. The patient talks about her ab. pain and how uncomfortable the diverticulitis is. She also shares about her family and the great support her spouse and 2 dtrs is. She also talks about her Naz[employer]e background and how important her [employer] nova is to her. I provided therapeutic listening, encouragement and prayer. The patient states that the prayer was very meaningful. I will continue to remain available to patient and family.
--- NOTE | 2024-05-29 12:50 | NUR ---
INFORMED MD OF C DIFF TOXIN RESULTS, AND INFORMED ABOUT SODIUM LEVEL OF 126.
[2024-05-29] MEDS ORDERED: Simethicone 80 MG Chew PO PRN (13:50)
[2024-05-29] MEDS ORDERED: Albuterol HFA200 ACT/6.7 GM INH INH PRN (13:55)
[2024-05-29] MEDS ORDERED: Vancomycin HCl 125 MG Cap PO SCH (14:00)
[2024-05-29 14:59] VITALS: BP 109/58
[2024-05-29 16:36] LABS: Albumin, Blood 2.2 g/dL (3.4-5.0); Anion Gap 13 mmol/L (3-11); Blood Urea Nitrogen 23 mg/dL (8-24); Bun/Creatinine Ratio 12.6 (12.0-20.0); CO2, Blood 21 mmol/L (21-32); Calcium, Blood 7.7 mg/dL (8.5-10.1); Chloride, Blood 99 mmol/L (98-108); Creatinine, Blood 1.83 mg/dL (0.40-1.00); Glomerular Filtration Rate 27 (60-); Glucose, Blood 97 mg/dL (70-99); Magnesium, Blood 1.8 mg/dL (1.6-2.4); Phosphorus, Blood 2.7 mg/dL (2.5-4.9); Potassium, Blood 4.4 mmol/L (3.5-5.5); Sodium, Blood 129 mmol/L (136-145)
--- NOTE | 2024-05-29 18:32 | NUR ---
SHIFT SUMMARY PT AOX4, COOPERATIVE, ABLE TO MAKE NEEDS KNOWN. RESULTS CAME BACK POSITIVE OR C DIFF TOXIN, CONTUING CONTACT PRECAUTION. TRANSFERRING TO COMMODE USING 1 PERSON ASSIST. RIGHT KNEE LIMITATION. PT HAS HAD APPROX 5 BOWEL MOVEMENTS THIS MORNING, HAS SLOWED DOWN SINCE THIS AFTERNOON. NEW CATHETER ORDERS PLACED PER MD, WILL PASS TO METAL SANDER AND FINISHER. ON CLEAR LIQUID DIET CURRENTLY, LR RUNNING 150ML/HR. BED IN LOWEST POSITION, CALL LIGHT WITHIN REACH.
[2024-05-29 20:19] VITALS: BP 119/72
[2024-05-29] MEDS ORDERED: Gabapentin 100 MG Cap PO SCH (21:00)
[2024-05-30 04:58] VITALS: BP 110/63
--- NOTE | 2024-05-30 05:27 | NUR ---
SHIFT SUMMARY: PT AOX4 AND ORIENTED TO ROOM AND ABLE TO MAKE NEEDS KNOWN. PT HAS HAD MULTIPLE BMS, STATES THEY COME OUT WHEN SHE COUGHS. PT HAD SMALL AMOUNTS OF DIARRHEA BEFORE, BUT THE LAST FEW BMS HAVE BEEN MORE FORMED LOOSE BLACK TARRY STOOLS CLOSER TO A PASTE. PATIENT HAS BEEN COMPLAINING OF SOME WHEEZING AND A SLIGHT COUGH BUT NO CHANGE IN WOB, DENIES SOB AND CHEST PAIN, STILL SATTING IN THE 90S. PROVIDER NOTIFIED. PT HAS BEEN HAVING ACUTE RETENTION AND STRAIGHT CATHED PREVIOUS NIGHT AND THROUGH OUT DAY SHIFT. PT HELPED TO COMMODE AND INSTRUCTED THE VOID BUT UNABLE TO. BLADDER SCAN REVEALED ~300ML, PROVIDER NOTIFIED AND INSTRUCTED TO PLACE A CAT. PT TOLERATED PROCEDURE WELL AND CLAIMS SOME RELIEVE FROM ABD DISCOMFORT. PT STILL COMPLAINED OF SOME ABD PAIN, MEDICATED PER EMR. PAIN SEEMS TO COME AND GO. TOLERATING MEDICATIONS AND FLUIDS WELL. PLEASANT MOOD AND AFFECT. PT RESTING IN BED, BED IN LOWEST POSITION, CALL LIGHT IN REACH. CONTINUING CARE.
[2024-05-30 06:01] LABS: BASOPHILS ABSOLUTE AUTO 0.06 K/mm3 (0.00-0.23); BASOPHILS PERCENT AUTO 0 % (0-2); EOSINOPHILS ABSOLUTE AUTO 0.08 K/mm3 (0.00-0.68); EOSINOPHILS PERCENT AUTO 0 % (0-6); Hematocrit 23.8 % (33.0-51.0); IMMATURE GRAN ABSOLUTE AUTO 0.43 K/mm3 (0.00-0.10); IMMATURE GRAN PERCENT AUTO 2 % (0-1); LYMPHOCYTES ABSOLUTE AUTO 0.75 K/mm3 (0.84-5.20); LYMPHOCYTES PERCENT AUTO 4 % (21-46); MONOCYTES ABSOLUTE AUTO 2.04 K/mm3 (0.16-1.47); MONOCYTES PERCENT AUTO 11 % (4-13); Mean Corpuscular HGB 31.9 pg (26.0-34.0); Mean Corpuscular HGB Conc 33.6 g/dL (31.5-36.5); Mean Corpuscular Volume 95 fL (80-100); Mean Platelet Volume 10.6 fL (9.1-12.4); NEUTROPHILS ABSOLUTE AUTO 15.34 K/mm3 (1.96-9.15); NEUTROPHILS PERCENT AUTO 82 % (41-73); Platelet Count 243 K/mm3 (150-400); RDW Coefficient Variation 18.5 % (11.7-14.2); Red Blood Cell Count 2.51 M/mm3 (3.80-5.20)
[2024-05-30 06:18] LABS: Bun/Creatinine Ratio 12.7 (12.0-20.0); Calcium, Blood 7.5 mg/dL (8.5-10.1); Creatinine, Blood 1.66 mg/dL (0.40-1.00)
[2024-05-30 07:40] VITALS: BP 98/61
--- NOTE | 2024-05-30 10:19 | NUR ---
pt laying in bed awake a/ox 4, pleasant and cooperative with care, follow commands well, denies pain, states she's just pooped out, lungs are clear dim in bases, resp even and unlabored, no cough noted, hrr, no edema noted, ppp+2, cap refill <3 sec, vs stable, afebrile, piv to rac infusing lr at 150/hr, site is clear and patent, btx4, abd flat soft nontender, aden cath draining clear yellow urine, skin c/w/d, milind rick, call light in reach.
--- NOTE | 2024-05-30 18:17 | NUR ---
pt lungs are more congested course with exp wheezing than this am, notified Dr. Coppola, recieved orders to stop fluids, cxr and resp panel, this was done, pt doing ok, vs stable, continues to have loose stools, no further changes this shift. call light in reach.
[2024-05-30 19:15] VITALS: BP 133/112
[2024-05-30 19:22] VITALS: BP 103/72
[2024-05-30 19:31] LABS: Adenovirus Not Detected (NOT DETECT); Bordetella pertussis Not Detected (NOT DETECT); Chlamydophila pneumoniae Not Detected (NOT DETECT); Coronavirus 229E Not Detected (NOT DETECT); Coronavirus HKU1 Not Detected (NOT DETECT); Coronavirus NL63 Not Detected (NOT DETECT); Coronavirus OC43 Not Detected (NOT DETECT); Human Metapneumovirus Not Detected (NOT DETECT); Human Rhinovirus/Enterovirus Not Detected (NOT DETECT); Influenza A/2009-H1 Not Detected (NOT DETECT); Influenza A/H1 Not Detected (NOT DETECT); Influenza A/H3 Not Detected (NOT DETECT); Influenza B Not Detected (NOT DETECT); Mycoplasma pneumoniae Not Detected (NOT DETECT); Parainfluenza Virus 1 Not Detected (NOT DETECT); Parainfluenza Virus 2 Not Detected (NOT DETECT); Parainfluenza Virus 3 Not Detected (NOT DETECT); Parainfluenza Virus 4 Not Detected (NOT DETECT); Respiratory Syncytial Virus Not Detected (NOT DETECT); SARS-Cov-2 (COVID-19), BioFire Not Detected (NOT DETECT)
[2024-05-31 04:55] VITALS: BP 113/70
--- NOTE | 2024-05-31 05:31 | NUR ---
SHIFT SUMMARY PT CONTINUES TO HAVE SMALL LOOSE STOOL DURING THE NIGHT, INCONT AT TIMES. C-DIFF ISOLATION MAINTAINED. MEDICATED WITH SIMETHICONE X2 PER EMAR FOR C/O GAS PAIN. PT DENIES NAUSEA. DRESSSING TO RIGHT KNEE C/D/I. RIGHT LEG CONTINUES TO BE EDEMATOUS, BUT NO REDNESS NOTED. PT ABLE TO TRANSFER TO BS WITH MINIMAL ASSISTANCE. IVF NOT INFUSED PER REPORT FROM PRIOR SHIFT AND NOTE STATING IVF SHOULD BE STOPPED. PT CONTINUES TO HAVE SOME EXPIRATORY WHEEZES TO UPPER LUNG LOBES WITH NONPRODUCTIVE COUGH. PT REQUESTED BREATHING TREATMENT X1, BUT WAS SLEEPING WHEN RT ARRIVED. PT DENIES ANY RESPIRATORY DISTRESS. PT SLEPT INTERMITTENTLY THROUGH THE NIGHT. BED IN LOWEST POSITION, CALL LIGHT WITHIN REACH, SIDERAILS UP X2.
[2024-05-31 06:03] LABS: Hematocrit 24.1 % (33.0-51.0); Hemoglobin 8.1 g/dL (11.5-16.0); Mean Corpuscular HGB 32.1 pg (26.0-34.0); Mean Corpuscular HGB Conc 33.6 g/dL (31.5-36.5); Mean Corpuscular Volume 96 fL (80-100); Mean Platelet Volume 10.2 fL (9.1-12.4); Platelet Count 272 K/mm3 (150-400); RDW Coefficient Variation 18.6 % (11.7-14.2); RDW Standard Deviation 64.9 fL (35.1-46.3); Red Blood Cell Count 2.52 M/mm3 (3.80-5.20); White Blood Cell Count 19.72 K/mm3 (4.00-11.30)
[2024-05-31 06:23] LABS: Albumin, Blood 1.9 g/dL (3.4-5.0); Albumin/Globulin Ratio 0.6 (0.8-1.8); Bilirubin, Total 0.6 mg/dL (0.1-1.0); Calcium, Blood 7.2 mg/dL (8.5-10.1); Creatinine, Blood 1.5 mg/dL (0.40-1.00); Magnesium, Blood 1.8 mg/dL (1.6-2.4); Phosphorus, Blood 1.6 mg/dL (2.5-4.9); Potassium, Blood 3.9 mmol/L (3.5-5.5); Total Protein, Blood 4.9 g/dL (6.4-8.2)
[2024-05-31 07:13] VITALS: BP 102/65
[2024-05-31] MEDS ORDERED: Furosemide 10 MG/ML 4ML Vial IV ONE (11:00)
[2024-05-31 15:41] VITALS: BP 106/66
--- NOTE | 2024-05-31 17:52 | NUR ---
SHIFT SUMMARY PT IS A/OX4. SBA WITH FWW. PT CONTINUES TO EXPEREINCE INCONT, LOOSE STOOLS. CAT IN PLACE DRAINING YELLOW/NEGRITA URINE. UP IN CHAIR THROUGHOUT THE SHIFT. NO ACUTE CHANGES THOUGHOUT THIS SHIFT. PT CALLS APPROPIRATELY. DAUGHTER AT BEDSIDE THROUGHOUT THIS SHIFT.
[2024-05-31 19:13] VITALS: BP 108/76
[2024-06-01 03:48] VITALS: BP 102/73
--- NOTE | 2024-06-01 05:22 | NUR ---
SHIFT SUMMARY PT CONTINUES TO HAVE LOOSE STOOL WITH INCONTINENCE. PT VERBALIZING FRUSTRATION WITH CONTINUED DIARRHEA. MEDICATED WITH SIMETHICONE X2 FOR C/O GAS PRESSURE PER EMAR. RIGHT LEG LESS SWOLLEN THAN PREVIOUS NIGHT. OOB TO COMMODE WITH MINIMAL ASSIST. PT SLEPT INTERMITTENTLY THROUGH THE NIGHT. BED IN LOWEST POSITION, CALL LIGHT WITHIN REACH, SIDERAILS UP X1.
[2024-06-01 06:11] LABS: Hematocrit 24.8 % (33.0-51.0); Hemoglobin 8.4 g/dL (11.5-16.0); Mean Corpuscular HGB 32.1 pg (26.0-34.0); Mean Corpuscular HGB Conc 33.9 g/dL (31.5-36.5); Mean Corpuscular Volume 95 fL (80-100); Mean Platelet Volume 10.4 fL (9.1-12.4); Platelet Count 282 K/mm3 (150-400); RDW Coefficient Variation 18.3 % (11.7-14.2); RDW Standard Deviation 63.4 fL (35.1-46.3); Red Blood Cell Count 2.62 M/mm3 (3.80-5.20); White Blood Cell Count 19.03 K/mm3 (4.00-11.30)
[2024-06-01 07:05] LABS: Bun/Creatinine Ratio 12.6 (12.0-20.0); Creatinine, Blood 1.51 mg/dL (0.40-1.00); Magnesium, Blood 1.8 mg/dL (1.6-2.4); Phosphorus, Blood 2.4 mg/dL (2.5-4.9); Potassium, Blood 3.6 mmol/L (3.5-5.5)
[2024-06-01 07:28] VITALS: BP 106/66
[2024-06-01] MEDS ORDERED: Furosemide 20 MG Tab PO ONE (15:05)
[2024-06-01 16:17] VITALS: BP 105/65
--- NOTE | 2024-06-01 19:03 | NUR ---
SHIFT SUMMARY PT IS A/OX4. SBA WITH FWW TO BSC/CHAIR. NO ACUTE CHANGES THROUGHOUT THIS SHIFT. PT CONTINUES TO EXPERIENCE CONT/INCONT LOOSE STOOLS. CONTINUING ORAL ANTIBIOTICS. CAT FOR ACUTE RETENTION PATENT AND DRAINING YELLOW URINE TO GRAVITY. PT CALL APPROPRIATELY USING THE CALL LIGHT.
[2024-06-01 20:16] VITALS: BP 120/66
[2024-06-02 04:17] VITALS: BP 111/66
[2024-06-02 06:53] LABS: Bun/Creatinine Ratio 10.1 (12.0-20.0); Calcium, Blood 6.9 mg/dL (8.5-10.1); Creatinine, Blood 1.38 mg/dL (0.40-1.00); Potassium, Blood 3.5 mmol/L (3.5-5.5)
[2024-06-02 07:17] VITALS: BP 106/67
[2024-06-02] MEDS ORDERED: MetroNIDAZOLE 500 MG Tab PO SCH (09:00)
[2024-06-02 15:22] VITALS: BP 109/69
--- NOTE | 2024-06-02 17:45 | NUR ---
SHIFT SUMMARY PT IS A/OX4, SBA WITH FWW TO BSC/CHAIR. NO ACUTE CHANGES THROUGHOUT THIS SHIFT. PT CONTINUES TO HAVE CONT/INCONT LOOSE STOOLS OF SMALL AMOUNTS THROUGHOUT THE DAY. DRESSINGS TO THE RIGHT KNEE CHANGED THIS AFTERNOON BY DR PRINCE AND DAILY WOUND CARE DRESSING CHANGES ORDERED. CONTINUING PO ANTIBIOTICS. PT CALLS APPROPRIATELY USING THE CALL LIGHT.
[2024-06-02 19:29] VITALS: BP 111/73
[2024-06-03 03:31] VITALS: BP 119/83
--- NOTE | 2024-06-03 05:05 | NUR ---
SHIFT SUMMARY PT SLEPT LONG INTERVALS TROUGH THE NIGHT. LOOSE STOOLS AND ABDOMINAL DISTENTION CONTINUE. MEDICATED WITH SIMETHICONE PER EMAR. PT OOB TO COMMODE MULTIPLE TIMES THROUGH THE NIGHT. DRESSING INTACT TO RIGHT KNEE, SWELLING REMAINS. BED IN LOWEST POSITION, CALL LIGHT WITHIN REACH, SIDERAILS UP X2.
[2024-06-03 06:30] LABS: Hemoglobin 8.8 g/dL (11.5-16.0); Mean Corpuscular HGB 32.5 pg (26.0-34.0); Mean Corpuscular HGB Conc 35.2 g/dL (31.5-36.5); Mean Corpuscular Volume 92 fL (80-100); Mean Platelet Volume 9.9 fL (9.1-12.4); Platelet Count 315 K/mm3 (150-400); RDW Coefficient Variation 18.2 % (11.7-14.2); RDW Standard Deviation 62.4 fL (35.1-46.3); Red Blood Cell Count 2.71 M/mm3 (3.80-5.20); White Blood Cell Count 18.85 K/mm3 (4.00-11.30)
[2024-06-03 07:09] LABS: Bun/Creatinine Ratio 15.7 (12.0-20.0); Calcium, Blood 7.2 mg/dL (8.5-10.1); Creatinine, Blood 1.21 mg/dL (0.40-1.00); Magnesium, Blood 1.9 mg/dL (1.6-2.4); Potassium, Blood 3.3 mmol/L (3.5-5.5)
[2024-06-03 07:29] VITALS: BP 102/66
[2024-06-03] MEDS ORDERED: Furosemide 20 MG Tab PO SCH (09:00)
--- NOTE | 2024-06-03 10:26 | NUR ---
PER DR PRINCE, D/C THE ORTHO CONSULT
[2024-06-03 15:57] VITALS: BP 127/86
--- NOTE | 2024-06-03 18:13 | NUR ---
PT PLEASANT TODAY. CONTINUES TO HAVE LOOSE STOOLS. STILL NOT ABLE TO BE CONTINENT. DOES STATES SOME IMPROVEMENT, BUT NOT ENOUGH YET. DR AGREED WE COULD REMOVE CAT TODAY. B/P STABLE TODAY. ABLE TO GET SELF TO BATHROOM SBA. NO NEW CONCERNS NOTED. BED IN LOW POSITION, CALL LITE IN REACH, CALLS APPROP
[2024-06-03 19:21] VITALS: BP 117/71
[2024-06-04 02:57] VITALS: BP 115/70
--- NOTE | 2024-06-04 05:45 | NUR ---
SHIFT SUMMARY: Pt is admitted for SEJAL and is a full code. Is alert and able to make needs known. ADLs have been SBA to IND. is on contact ISO for c-diff. Denies pain or discomfort when asked. Folly removed on day shift yesterday. Voided a couple of times per PT statement.
[2024-06-04 06:08] LABS: Hematocrit 23.8 % (33.0-51.0); Hemoglobin 8.3 g/dL (11.5-16.0)
[2024-06-04 06:35] LABS: Bun/Creatinine Ratio 16.7 (12.0-20.0); Calcium, Blood 6.8 mg/dL (8.5-10.1); Creatinine, Blood 1.02 mg/dL (0.40-1.00); Magnesium, Blood 1.8 mg/dL (1.6-2.4); Potassium, Blood 3.1 mmol/L (3.5-5.5)
[2024-06-04 07:38] VITALS: BP 90/61
[2024-06-04] MEDS ORDERED: Potassium Chloride 10 Meq Tablet SA PO ONE (10:25)
[2024-06-04] MEDS ORDERED: Furosemide 20 MG Tab PO ONE (12:00)
[2024-06-04] MEDS ORDERED: Bismuth Subsalicylate 240 ML BTL PO PRN (12:20)
--- NOTE | 2024-06-04 18:49 | NUR ---
ASSUMED CARE OF PT. VERY PLEASENT PT A/O X4 CALLS APPROPRIATLY AND MAKES NEEDS KNOWN,. UNEVENTFUL DAY TODAY,
--- NOTE | 2024-06-04 19:15 | NUR ---
pt was in and out of chair today independantly and was able to make needs known, right knee dressing was removed and wound cleansed. wound was recovered with aquacell dressing. pt aminah well with minimal pain noted. was at bedside to assist with care.
[2024-06-04 20:02] VITALS: BP 114/67
--- NOTE | 2024-06-05 02:59 | NUR ---
SHIFT SUMMARY NO ACUTE EVENTS DURING THIS SHIFT. PT IS A/O X4, PLEASANT, ABLE TO MAKE HER NEEDS KNOWN. NO REPORTS OF BM/LOOSE STOOL DURING THIS SHIFT. RIGHT KNEE DRESSING C/D/I, WAS CHANGED DURING PREVIOUS SHIFT. LE EDEMA +2 BILATERALLY. RIGHT LEG ELEVATED WITH PILLOWS, PT ICING THE RIGHT KNEE. PT DENIES PAIN AND DISCOMFORT. BED AT THE LOWEST POSITION, CALL LIGHT W/I REACH.
[2024-06-05 03:01] VITALS: BP 102/59
[2024-06-05] MEDS ORDERED: Acetaminophen 325 MG TABLET PO PRN (05:15)
--- NOTE | 2024-06-05 05:16 | NUR ---
NEW ORDER RECEIVED FROM THE ON-CALL HOSPITALIST FOR PO TYLENOL PRN. RECEIVED BY THE BREAK NURSE CELINE FRANKS.
[2024-06-05] MEDS ORDERED: Mag Sulfate 1 GM/D5% 100ML 100 ML IV STA (07:37)
[2024-06-05 07:59] VITALS: BP 100/66
[2024-06-05] MEDS ORDERED: Potassium Chloride 20 MEQ TabCR PO ONE (08:00)
[2024-06-05] MEDS ORDERED: VISBIOME 112.51 EACH PO (12:33)
[2024-06-05] MEDS ORDERED: METR500 PO (12:34)
[2024-06-05] MEDS ORDERED: VANCOCIN HCL125 MG (12:35)
--- NOTE | 2024-06-05 17:57 | NUR ---
ASSUMED CARE OF PT A/O AWAITING DISCHARGE ORDERS. NO DIARRHEA SINCE YESTURDAY AFTERNOON, MINIMAL C/O PAIN TO ABD AND SOME TO KNEE. DRESSING IS CDI AND ELEVATED IN BED. PT CALLS APPROPIATLY MAKES NEEDS KNOWN
== END 2024-06-05 13:53 | disposition home or self-care (01) | DRG 872 ==
LOC: ER 13:45 → MEDS 21:29 → ERHOLD 21:29 → MEDS 23:24 → ENPENDDIS 06-05 11:33 → MEDS 06-05 13:53
PROVIDERS: Hospitalist; Internal Medicine; Nurse Practitioner Acute Care; Student in an Organized Health Care Education/Training Program; ADMIT Student in an Organized Health Care Education/Training Program
DX: A41.9 Sepsis, unspecified organism (principal); A04.72 Enterocolitis due to Clostridium difficile, not specified as recurrent; N17.9 Acute kidney failure, unspecified; E87.1 Hypo-osmolality and hyponatremia; N18.30 Chronic kidney disease, stage 3 unspecified; R33.9 Retention of urine, unspecified; M19.90 Unspecified osteoarthritis, unspecified site; K21.9 Gastro-esophageal reflux disease without esophagitis; E86.1 Hypovolemia; I12.9 Hypertensive chronic kidney disease with stage 1 through stage 4 chronic kidney disease, or unspecified chronic kidney disease; Z98.890 Other specified postprocedural states; G62.9 Polyneuropathy, unspecified; Z88.5 Allergy status to narcotic agent; Z87.19 Personal history of other diseases of the digestive system; Z88.6 Allergy status to analgesic agent; Z88.2 Allergy status to sulfonamides; Z88.8 Allergy status to other drugs, medicaments and biological substances; Z87.442 Personal history of urinary calculi; Z90.710 Acquired absence of both cervix and uterus; Z90.79 Acquired absence of other genital organ(s); Z90.722 Acquired absence of ovaries, bilateral; Z90.13 Acquired absence of bilateral breasts and nipples
CPT/HCPCS: 0202U; 36415; 51798; 71045; 73560-RT; 74176; 80048; 80053; 80069; 81001; 82947; 83605; 83690; 83735; 84100; 85014; 85018; 85025; 85027; 87086; 87324; 87507; 93005; 93010; 94640; 94664; 94760; 96360; 97110; 97116; 97162; 97530; 99285-25; A9270; J1644; J1940; J2405; J2543; J3010; J3475; J7050; J7120

== ENCOUNTER 2024-07-30 10:48 | Inpatient (IN) | payer MEDICARE, OTHER ==
[~2024-07-30] VITALS: Ht 157.5 cm; Wt 66.9 kg
[~2024-07-30 10:48] MED LIST changes: +FURO20 PO; +METO25 PO; -METOPROLOL TART25 MG PO; +VANCOCIN HCL125 MG; +VISBIOME 112.51 EACH PO
[2024-07-30 11:56] LABS: BASOPHILS ABSOLUTE AUTO 0.03 K/mm3 (0.00-0.23); BASOPHILS PERCENT AUTO 0 % (0-2); EOSINOPHILS ABSOLUTE AUTO 0.26 K/mm3 (0.00-0.68); EOSINOPHILS PERCENT AUTO 2 % (0-6); Hematocrit 33.4 % (33.0-51.0); Hemoglobin 10.7 g/dL (11.5-16.0); IMMATURE GRAN ABSOLUTE AUTO 0.14 K/mm3 (0.00-0.10); IMMATURE GRAN PERCENT AUTO 1 % (0-1); LYMPHOCYTES ABSOLUTE AUTO 3.76 K/mm3 (0.84-5.20); LYMPHOCYTES PERCENT AUTO 25 % (21-46); MONOCYTES ABSOLUTE AUTO 1.38 K/mm3 (0.16-1.47); MONOCYTES PERCENT AUTO 9 % (4-13); Mean Corpuscular HGB 30.1 pg (26.0-34.0); Mean Corpuscular Volume 94 fL (80-100); Mean Platelet Volume 10.6 fL (9.1-12.4); NEUTROPHILS ABSOLUTE AUTO 9.53 K/mm3 (1.96-9.15); NEUTROPHILS PERCENT AUTO 63 % (41-73); NRBC ABSOLUTE 0.03 K/mm3 (0.00-0.02); NRBC Auto 0.2 /100 WBC (0.0-0.2); Platelet Count 354 K/mm3 (150-400); RDW Coefficient Variation 18.6 % (11.7-14.2); RDW Standard Deviation 63.3 fL (35.1-46.3); Red Blood Cell Count 3.55 M/mm3 (3.80-5.20)
[2024-07-30 12:22] LABS: Albumin/Globulin Ratio 0.7 (0.8-1.8); Bilirubin, Total 0.3 mg/dL (0.1-1.0); Bun/Creatinine Ratio 17.2 (12.0-20.0); Calcium, Blood 8.3 mg/dL (8.5-10.1); Creatinine, Blood 0.93 mg/dL (0.40-1.00); Globulin, Blood 4.3 g/dL (2.2-4.0); Potassium, Blood 3.5 mmol/L (3.5-5.5); Total Protein, Blood 7.3 g/dL (6.4-8.2)
[2024-07-30] MEDS ORDERED: Lactated Ringer's 1,000 ML IV ONE (14:20)
[2024-07-30 14:29] LABS: Source, Urine Clean Catch
[2024-07-30 14:35] LABS: Appearance, Urine Clear (Clear); Bilirubin, Urine Neg (Neg); Blood, Urine 1+ (Neg); Color, Urine Yellow (P-Yellow); Glucose Qualitative, Urine Neg (Neg); Ketones, Urine Neg (Neg); Leukocyte Esterase, Urine 2+ (Neg); Nitrite, Urine Neg (Neg); Protein, Urine 2+ (Neg); Urobilinogen, Urine NORM (Normal)
[2024-07-30 14:50] LABS: Mucus Light (0-Heavy); White Blood Cells, Urine 25-50 /hpf (0-5)
[2024-07-30 14:51] LABS: Bacteria Mod /hpf; Squamous Epithelial Cells Rare /hpf (Few); Transitional Epithelial Cells Few /hpf (0-Rare)
[2024-07-30] MEDS ORDERED: Simethicone 80 MG Chew PO ONE (19:45)
[2024-07-30 20:10] LABS: Adenovirus F 40/41 Not Detected (NOT DETECT); Astrovirus Not Detected (NOT DETECT); Campylobacter Sp Not Detected (NOT DETECT); Cryptosporidium Not Detected (NOT DETECT); Cyclospora Cayetanensis Not Detected (NOT DETECT); E. Coli O157 Not Detected (NOT DETECT); Entamoeba Histolytica Not Detected (NOT DETECT); Enteroaggregative E. coli-EAEC Not Detected (NOT DETECT); Enteropathogenic E. coli-EPEC Not Detected (NOT DETECT); Enterotoxigenic E. coli-ETEC Not Detected (NOT DETECT); Giardia Lamblia Not Detected (NOT DETECT); Norovirus GI/GII Detected (NOT DETECT); Plesiomonas Shigelloides Not Detected (NOT DETECT); Rotavirus A Not Detected (NOT DETECT); Salmonella Sp Not Detected (NOT DETECT); Sapovirus Not Detected (NOT DETECT); Shiga Toxin-prod E. coli-STEC Not Detected (NOT DETECT); Shigella/Enteroin E. coli-EIEC Not Detected (NOT DETECT); Vibrio Cholerae Not Detected (NOT DETECT); Vibrio Sp Not Detected (NOT DETECT); Yersinia Enterocolitica Not Detected (NOT DETECT)
[2024-07-30] MEDS ORDERED: DIFICID200 MG PO (20:19)
[2024-07-30] MEDS ORDERED: Fidaxomicin 200 MG Tab PO ONE (20:20)
[2024-07-30] MEDS ORDERED: Lactated Ringer's 1,000 ML IV SCH (22:40)
[2024-07-30] MEDS ORDERED: Ondansetron HCl 2 MG / ML 2ML Vial IV PRN (22:40)
[2024-07-31 00:31] VITALS: BP 117/70
[2024-07-31] MEDS ORDERED: Gabapentin 100 MG Cap PO SCH (02:05)
[2024-07-31] MEDS ORDERED: Metoprolol Succinate 25 MG TABCR PO SCH ×3 (02:25→21:00)
[2024-07-31 02:51] VITALS: BP 117/72
[2024-07-31 05:55] LABS: BASOPHILS ABSOLUTE AUTO 0.02 K/mm3 (0.00-0.23); BASOPHILS PERCENT AUTO 0 % (0-2); EOSINOPHILS ABSOLUTE AUTO 0.28 K/mm3 (0.00-0.68); EOSINOPHILS PERCENT AUTO 2 % (0-6); Hematocrit 27.5 % (33.0-51.0); Hemoglobin 8.7 g/dL (11.5-16.0); IMMATURE GRAN ABSOLUTE AUTO 0.05 K/mm3 (0.00-0.10); IMMATURE GRAN PERCENT AUTO 0 % (0-1); LYMPHOCYTES ABSOLUTE AUTO 3.41 K/mm3 (0.84-5.20); LYMPHOCYTES PERCENT AUTO 27 % (21-46); MONOCYTES ABSOLUTE AUTO 1.31 K/mm3 (0.16-1.47); MONOCYTES PERCENT AUTO 11 % (4-13); Mean Corpuscular HGB 29.8 pg (26.0-34.0); Mean Corpuscular HGB Conc 31.6 g/dL (31.5-36.5); Mean Corpuscular Volume 94 fL (80-100); Mean Platelet Volume 10.5 fL (9.1-12.4); NEUTROPHILS ABSOLUTE AUTO 7.45 K/mm3 (1.96-9.15); NEUTROPHILS PERCENT AUTO 60 % (41-73); NRBC ABSOLUTE 0.02 K/mm3 (0.00-0.02); NRBC Auto 0.2 /100 WBC (0.0-0.2); Platelet Count 268 K/mm3 (150-400); RDW Coefficient Variation 18.6 % (11.7-14.2); RDW Standard Deviation 63.5 fL (35.1-46.3); Red Blood Cell Count 2.92 M/mm3 (3.80-5.20); White Blood Cell Count 12.52 K/mm3 (4.00-11.30)
--- NOTE | 2024-07-31 05:58 | NUR ---
SHIFT SUMMARY PATIENT LOOKS YOUNGER THAN STATED AGE. A&OX4. PLEASANT AND COOPERATIVE WITH CARE. STOMA LT ABD SHE'S HAD FOR A MONTH. PT REPORTS THAT SHE HAD NORMAL STOOL FOR AWHILE. PT ALSO REPORTS THAT SHES HAD C-DIFF A COUPLE TIMES SINCE APR. SCHEDULED MEDS GIVEN ORDERED. PATIENT SLEEPING WITH UNDISTURBED. CONTACT ISOLATION. MINIMAL ASSIST TO THE BR TO VOID. LOTS OF GAS IN OSTOMY. WILL GIVE REPORT TO ONCOMING RN TAKING PT.
[2024-07-31 06:32] LABS: Albumin, Blood 2.4 g/dL (3.4-5.0); Albumin/Globulin Ratio 0.7 (0.8-1.8); Bilirubin, Total 0.3 mg/dL (0.1-1.0); Bun/Creatinine Ratio 13.9 (12.0-20.0); Calcium, Blood 7.9 mg/dL (8.5-10.1); Creatinine, Blood 0.86 mg/dL (0.40-1.00); Globulin, Blood 3.4 g/dL (2.2-4.0); Potassium, Blood 3.4 mmol/L (3.5-5.5); Total Protein, Blood 5.8 g/dL (6.4-8.2)
[2024-07-31 07:14] VITALS: BP 115/70
[2024-07-31] MEDS ORDERED: Potassium Chl 10MEQ/Water100ML 100 ML IV ONE (08:10)
[2024-07-31] MEDS ORDERED: Fidaxomicin 200 MG Tab PO SCH ×2 (09:00→21:54)
[2024-07-31] MEDS ORDERED: Enoxaparin 40 MG/0.4 ML SYR SC SCH (09:00)
[2024-07-31] MEDS ORDERED: Lisinopril 10 MG Tab PO SCH (09:00)
[2024-07-31] MEDS ORDERED: Simethicone 80 MG Chew PO PRN (12:45)
--- NOTE | 2024-07-31 13:46 | NUR ---
Pt. is resting but responds when I enter the room and welcomes my visit. Pt. is pleasant, and as I faciliated a life review the pt. verbalized that I had visited her on a past hospital stay. Considered matters of nova and belief and listened with interest and empathy. During the course of ev rapport is established. Prayed with Pt. Pt. verbalized gratitude for the spiritual care visit and welcomed this silverware buffer to return.
[2024-07-31 14:32] VITALS: BP 102/57
--- NOTE | 2024-07-31 16:24 | NUR ---
SUMMARY PATIENTIS AOX4, IND. OSTOMY IS PUTTING OUT MODERATE AMOUNT OF STOOL AND GAS. MEDICATED WITH ORAL ABX, DENIES PAIN. IVF RUNNING. VSS. ABLE TO DO MOST OSTOMY CARE WITH MINIMAL ASSISTANCE. CALL LIGHT IN REACH.
[2024-07-31 20:03] VITALS: BP 109/74
[2024-07-31] MEDS ORDERED: Lactobacil 2-S.Thermo-Bifido 1 1 Cap PO SCH (21:00)
[2024-08-01 04:14] VITALS: BP 106/71
--- NOTE | 2024-08-01 05:52 | NUR ---
SHIFT SUMMARY. PATIENT RESTED WELL T/O NOC. SCHEDULED MEDS GIVEN ORDERED AND PRN NEEDED. OSTOMY WITH LOTS OF GAS THAT PT TAKES CARE OF. PATIENT WANTING TO GO HOME TODAY. CONTACT ISOLATION. INDEPENDENT IN ROOM. NO ACUTE CHANGES T/O NOC. WILL GIVE REPORT TO RN TAKING PT.
[2024-08-01 07:18] VITALS: BP 101/68
[2024-08-01 07:42] LABS: Bun/Creatinine Ratio 8.6 (12.0-20.0); Calcium, Blood 7.9 mg/dL (8.5-10.1); Creatinine, Blood 0.93 mg/dL (0.40-1.00)
[2024-08-01] MEDS ORDERED: METO25ER PO (14:16)
[2024-08-01] MEDS ORDERED: SIME80CH PO (14:17)
[2024-08-01] MEDS ORDERED: DIFICID200 MG PO (14:17)
--- NOTE | 2024-08-01 14:35 | NUR ---
DISCHARGE PT EDUCATED ON AND RECEIVED PRINTED DISCHARGE INSTRUCTIONS AND VERBALIZED AN UNDERSTANDING. RX FAXED TO [facility]. IV DC'D. PT LEFT WITH ALL PERSONAL BELONGINGS AND ESCORTED OUT VIA W/C. PT SPOUSE TO DRIVE PT HOME.
== END 2024-08-01 14:28 | disposition home or self-care (01) | DRG 372 ==
LOC: ER 10:48 → ERHOLD 10:49 → SURS 10:49
PROVIDERS: Family Medicine; Nurse Practitioner Acute Care; Physician Assistant; Student in an Organized Health Care Education/Training Program; ADMIT Internal Medicine
DX: A04.72 Enterocolitis due to Clostridium difficile, not specified as recurrent (principal); K63.0 Abscess of intestine; A08.11 Acute gastroenteropathy due to Norwalk agent; K21.9 Gastro-esophageal reflux disease without esophagitis; Z66 Do not resuscitate; I10 Essential (primary) hypertension; Z96.651 Presence of right artificial knee joint; Z88.2 Allergy status to sulfonamides; Z88.5 Allergy status to narcotic agent; Z88.8 Allergy status to other drugs, medicaments and biological substances; Z79.811 Long term (current) use of aromatase inhibitors; Z79.899 Other long term (current) drug therapy; Z87.442 Personal history of urinary calculi; Z87.19 Personal history of other diseases of the digestive system; Z90.710 Acquired absence of both cervix and uterus; Z98.890 Other specified postprocedural states; Z98.41 Cataract extraction status, right eye; Z90.49 Acquired absence of other specified parts of digestive tract
CPT/HCPCS: 36415; 74177; 80048; 80053; 81001; 83605; 83690; 85025; 87086; 87324; 87507; 96360-59; 96361; 96365; 96366; 96372; 96375; 99284-25; A9270; G0378; J1650; J2405; J3480; J7120; Q9967

== ENCOUNTER → 2024-08-30 | Outpatient (CLI) | payer MEDICARE, OTHER ==
[~2024-08-30] MED LIST changes: +DIFICID200 MG PO; +METO25ER PO; +SIME80CH PO
[2024-08-31 10:51] LABS: Adenovirus F 40/41 Not Detected (NOT DETECT); Astrovirus Not Detected (NOT DETECT); Campylobacter Sp Not Detected (NOT DETECT); Cryptosporidium Not Detected (NOT DETECT); Cyclospora Cayetanensis Not Detected (NOT DETECT); E. Coli O157 Not Detected (NOT DETECT); Entamoeba Histolytica Not Detected (NOT DETECT); Enteroaggregative E. coli-EAEC Not Detected (NOT DETECT); Enteropathogenic E. coli-EPEC Not Detected (NOT DETECT); Enterotoxigenic E. coli-ETEC Not Detected (NOT DETECT); Giardia Lamblia Not Detected (NOT DETECT); Norovirus GI/GII Not Detected (NOT DETECT); Plesiomonas Shigelloides Not Detected (NOT DETECT); Rotavirus A Not Detected (NOT DETECT); Salmonella Sp Not Detected (NOT DETECT); Sapovirus Not Detected (NOT DETECT); Shiga Toxin-prod E. coli-STEC Not Detected (NOT DETECT); Shigella/Enteroin E. coli-EIEC Not Detected (NOT DETECT); Vibrio Cholerae Not Detected (NOT DETECT); Vibrio Sp Not Detected (NOT DETECT); Yersinia Enterocolitica Not Detected (NOT DETECT)
== END ==
LOC: LAB 17:32 → LAB SHORT 17:32
PROVIDERS: Internal Medicine
DX: R19.7 Diarrhea, unspecified (principal)
CPT/HCPCS: 87324; 87507

== ENCOUNTER → 2024-09-24 | Outpatient (CLI) | payer MEDICARE, OTHER ==
[2024-09-24 14:20] LABS: BASOPHILS ABSOLUTE AUTO 0.02 K/mm3 (0.00-0.23); BASOPHILS PERCENT AUTO 0 % (0-2); EOSINOPHILS ABSOLUTE AUTO 0.24 K/mm3 (0.00-0.68); EOSINOPHILS PERCENT AUTO 2 % (0-6); Hematocrit 31.6 % (33.0-51.0); Hemoglobin 10.4 g/dL (11.5-16.0); IMMATURE GRAN ABSOLUTE AUTO 0.03 K/mm3 (0.00-0.10); IMMATURE GRAN PERCENT AUTO 0 % (0-1); LYMPHOCYTES ABSOLUTE AUTO 3.73 K/mm3 (0.84-5.20); LYMPHOCYTES PERCENT AUTO 37 % (21-46); MONOCYTES ABSOLUTE AUTO 1.03 K/mm3 (0.16-1.47); MONOCYTES PERCENT AUTO 10 % (4-13); Mean Corpuscular HGB 32.3 pg (26.0-34.0); Mean Corpuscular HGB Conc 32.9 g/dL (31.5-36.5); Mean Corpuscular Volume 98 fL (80-100); NEUTROPHILS ABSOLUTE AUTO 5.11 K/mm3 (1.96-9.15); NEUTROPHILS PERCENT AUTO 50 % (41-73); Platelet Count 265 K/mm3 (150-400); RDW Coefficient Variation 20.5 % (11.7-14.2); RDW Standard Deviation 75.2 fL (35.1-46.3); Red Blood Cell Count 3.22 M/mm3 (3.80-5.20); White Blood Cell Count 10.16 K/mm3 (4.00-11.30)
== END ==
LOC: LAB SHORT 14:00 → LAB 14:00
PROVIDERS: Student in an Organized Health Care Education/Training Program
DX: D64.9 Anemia, unspecified (principal); R79.89 Other specified abnormal findings of blood chemistry
CPT/HCPCS: 85025; 85060

== ENCOUNTER 2025-01-31 06:17 | Inpatient (IN) | payer MEDICARE, OTHER ==
[2025-01-31] VITALS (18 sets, daily range): BP systolic 107–133; BP diastolic 70–94
[~2025-01-31] VITALS: Ht 152.4 cm; Wt 68.4 kg
[~2025-01-31 06:17] MED LIST changes: +MULTI-VITAMIN1 EAC2 PO; +VANCOCIN HCL125 MG PO
[2025-01-31] MEDS ORDERED: MetroNIDAZOLE 500MG/NS 100 ml 100 ML IV SCH (06:25)
[2025-01-31] MEDS ORDERED: CeFAZolin Sodium 2,000 MG in NS 100 ML IV SCH (06:25)
[2025-01-31] MEDS ORDERED: Heparin Sodium,Porcine 5,000 UNIT/0.5 ML SDV SC SCH (06:30)
[2025-01-31] MEDS ORDERED: INHALER PRN (06:45)
--- NOTE | 2025-01-31 07:14 | NUR ---
Pre-Op teaching done. Pt verbalizes understanding. Ambulatory in Day Surgery. Patient confirms NPO status and agrees with scheduled surgery. History, Chart, Medications and Allergies reviewed before start of procedure.
[2025-01-31] MEDS ORDERED: FentaNYL Citrate 50 MCG/ML 2 ML Injection ONE ×2 (07:35→11:26)
[2025-01-31] MEDS ORDERED: Rocuronium Bromide 10 MG/ML 5ML Injection IV ONE ×2 (07:35→11:41)
[2025-01-31] MEDS ORDERED: PREMARIN CREAM VAG (07:36)
[2025-01-31] MEDS ORDERED: Bupivacaine 0.5% HCl 5 MG/ML 30MLVIAL ONE (07:37)
[2025-01-31] MEDS ORDERED: METR500 (07:42)
[2025-01-31] MEDS ORDERED: Bupivacaine 0.25% Epi 1:200000 30 ML Vial ONE (07:44)
[2025-01-31] MEDS ORDERED: Ondansetron HCl 2 MG / ML 2ML Vial ONE (08:37)
[2025-01-31] MEDS ORDERED: Dexamethasone Sod Phos 10 MG/ML 1ML VIAL ONE (08:37)
[2025-01-31] MEDS ORDERED: Sugammadex Sodium 200 MG/2ML SDV (100 MG/ML) ONE (10:22)
[2025-01-31] MEDS ORDERED: Labetalol HCL 5 MG/ML 4ML Injection (Single Dose) IV PRN (12:35)
[2025-01-31] MEDS ORDERED: FentaNYL Citrate 50 MCG/ML 2 ML Injection IV PRN ×2 (12:35→12:40)
[2025-01-31] MEDS ORDERED: HYDROmorphone HCl/Pf 1MG SYR IV PRN ×3 (12:40→13:20)
[2025-01-31] MEDS ORDERED: Ondansetron HCl 2 MG / ML 2ML Vial IV PRN ×3 (12:40→20:25)
[2025-01-31] MEDS ORDERED: HYDROmorphone HCl/Pf 1MG SYR ONE (13:17)
[2025-01-31] MEDS ORDERED: FLU VACC TS2025(65UP)/MF59C/PF 45 MCG/0.5 ML SYRINGE IM SCH (13:20)
[2025-01-31] MEDS ORDERED: Prochlorperazine Edisylate 10 mg Vial IV PRN (15:20)
--- NOTE | 2025-01-31 23:24 | NUR ---
EMESIS *LATE ENTRY* WHILE RECIEVING BEDSIDE REPORT, APPROX 1914, PT STARTED HAVING EMESIS. APPROX 250ML UNDIGESTED JELLO, FLUIDS & MANDARIN ORANGES IN EMESIS. MEDICATED W/4MG IV ZOFRAN. LATER IN ADOLFO WHEN APPLYING SCOPALAMINE PATCH PT REPORTED TO THIS NURSE SHE GETS NAUSEATED W/NARCOTICS & DILAUDID & FORGOT TO MENTION THAT TO ANYONE.
[2025-02-01 04:13] VITALS: BP 99/76
[2025-02-01 05:10] LABS: Hematocrit 30.1 % (33.0-51.0); Hemoglobin 9.8 g/dL (11.5-16.0); Mean Corpuscular HGB Conc 32.6 g/dL (31.5-36.5); Mean Corpuscular Volume 100 fL (80-100); NRBC ABSOLUTE 0.05 K/mm3 (0.00-0.02); NRBC Auto 0.5 /100 WBC (0.0-0.2); Platelet Count 235 K/mm3 (150-400); RDW Coefficient Variation 18.6 % (11.7-14.2); RDW Standard Deviation 68.4 fL (35.1-46.3)
[2025-02-01 05:30] LABS: Anion Gap 8.0 mmol/L (3-11); Blood Urea Nitrogen 18.0 mg/dL (8-24); CO2, Blood 26.0 mmol/L (21-32); Calcium, Blood 7.8 mg/dL (8.5-10.1); Chloride, Blood 104.0 mmol/L (98-108); Creatinine, Blood 1.01 mg/dL (0.40-1.00); Glucose, Blood 142.0 mg/dL (70-99); Magnesium, Blood 2.1 mg/dL (1.6-2.4); Potassium, Blood 4.5 mmol/L (3.5-5.5); Sodium, Blood 133.0 mmol/L (136-145)
[2025-02-01] MEDS ORDERED: Ketorolac Tromethamine 15mg Vial IV PRN (07:30)
--- NOTE | 2025-02-01 08:08 | NUR ---
SHIFT SUMMARY AOX4. POD 1-LAP APPY W/LYSIS OF ADHESIONS. x4 LAP SITES, OPEN TO AIR C/D/I. NO DRAINAGE NOTED. NO OUTPUT OR FLATUS NOTED IN OSTOMY T/O SHIFT. HYPOACTIVE BT. PT REPORTS FEELING "FULL OF GAS". ENCOURAGED AMBULATION, WENT FOR 1 WALK. VOIDED. REPORTS 4-6/10 ABD PAIN OR DISCOMFORT, WORSE W/MOVEMENT. MEDICATED 2x W/TYLENOL FOR PAIN BECAUSE PT REPORTS SHE GETS VERY NAUSEATED & HAS VIOLENT EMESIS W/NARCOTICS. PT HAD 1 EMESIS EPISODE @BEGINNING OF SHIFT, NONE SINCE SCOPALAMINE PATCH & ZOFRAN GIVEN. CALL LIGHT IN REACH & PT ABLE TO MAKE NEEDS KNOWN.
[2025-02-01] MEDS ORDERED: Enoxaparin 40 MG/0.4 ML SYR SC SCH (09:00)
--- NOTE | 2025-02-01 13:31 | NUR ---
ASSUMED CARE OF PT PT VERY PLEASENT A/O X 4 APPROPRIATE WITH CARE AND IS ABLE TO MAKE NEEDS KNOWN. C/O ABD PAIN, PT COVERED WITH PAIN MEDS. ABD SX SITE CDI NO S/S OF BLEEDING SITE. ILEOSTOMY INTACT. HYPERACTIVE BS NOTED NO STOOL YET BUT PT IS PASSING GAS. CALL LIGHT WITHIN REACH, AT BEDSIDE.
--- NOTE | 2025-02-01 13:35 | NUR ---
PT REQUESTED TO WALK. PT OUT OF BED WITH WALKER, WAS ABLE TO WALK ABOUT 40FT BUT WAS A LITTLE DIZZY SO RETURNED TO BED. VSS NO ADDIOTIONAL ISSUES
[2025-02-01] MEDS ORDERED: DEXTROMETHORPHAN/BENZOCAINE 1 EACH LOZENGE MT PRN (13:50)
[2025-02-01 15:57] VITALS: BP 89/56
[2025-02-01 16:44] LABS: Hematocrit 26.6 % (33.0-51.0); Hemoglobin 8.6 g/dL (11.5-16.0)
--- NOTE | 2025-02-01 18:32 | NUR ---
SPOKE WITH MD ABOUT PT DIZZINESS AND LOW BP FLUIDS STARTED WELL LAB WORK TO BE DONE. PT STATES SHE FEELS WELL AND IS ONLY DIZZY WHEN STANDING. BED ALARM ON FOR PT YOON. NEW IV STARTED TO RIGHT FA
[2025-02-01 19:16] VITALS: BP 90/57
[2025-02-01 22:13] VITALS: BP 99/70
--- NOTE | 2025-02-02 00:52 | NUR ---
0030- pt requests a inhaler. denies sob. pt states she needs it to break up congestion. pt encouraged to use incentive spirometer and to try and walk some. pt encouraged to deep breathe. pt states she does not know what kind of inhaler she uses but that she has been using primetine mist cause of cost.
[2025-02-02 04:15] VITALS: BP 96/64
[2025-02-02 04:17] LABS: BASOPHILS ABSOLUTE AUTO 0.03 K/mm3 (0.00-0.23); BASOPHILS PERCENT AUTO 0 % (0-2); EOSINOPHILS ABSOLUTE AUTO 0.28 K/mm3 (0.00-0.68); EOSINOPHILS PERCENT AUTO 3 % (0-6); Hematocrit 24.8 % (33.0-51.0); Hemoglobin 8.5 g/dL (11.5-16.0); IMMATURE GRAN ABSOLUTE AUTO 0.05 K/mm3 (0.00-0.10); IMMATURE GRAN PERCENT AUTO 1 % (0-1); LYMPHOCYTES ABSOLUTE AUTO 2.54 K/mm3 (0.84-5.20); LYMPHOCYTES PERCENT AUTO 27 % (21-46); MONOCYTES ABSOLUTE AUTO 1.16 K/mm3 (0.16-1.47); MONOCYTES PERCENT AUTO 12 % (4-13); Mean Corpuscular HGB Conc 34.3 g/dL (31.5-36.5); Mean Corpuscular Volume 97 fL (80-100); NEUTROPHILS ABSOLUTE AUTO 5.44 K/mm3 (1.96-9.15); NEUTROPHILS PERCENT AUTO 57 % (41-73); NRBC ABSOLUTE 0.03 K/mm3 (0.00-0.02); NRBC Auto 0.3 /100 WBC (0.0-0.2); Platelet Count 188 K/mm3 (150-400); RDW Coefficient Variation 18.7 % (11.7-14.2); RDW Standard Deviation 66.6 fL (35.1-46.3)
--- NOTE | 2025-02-02 05:46 | NUR ---
NOC SUMMARY- PT PAIN MANAGED WELL. PT HAD SOME EPISODES OF NAUSEA. NO VOMITING. PT HAS HAD SOME SCANT LIQUID STOOL IN OSTOMY. PT IS VOIDING WELL AND TOLERATING PO. PT SBP REMAIN IN 90'S. PT HAS DENIED ANY LIGHTHEADEDNESS OR DIZZINESS. DRESSING C/D/I. CALL LIGHT IN REACH.
[2025-02-02 07:51] VITALS: BP 86/63
[2025-02-02 15:25] VITALS: BP 110/69
--- NOTE | 2025-02-02 16:53 | NUR ---
SUMMARY PT SBP IN 80S THIS AM, REC'D 1L FLUID BOLUS AND SBP IMPROVED TO 100S. PT ASYMPTOMATIC, AMBULATED IN POLLOCK. REPORTED HAD BLOOD ON TISSUE WITH ONE VOID. LATER VOIDS LIGHT YELLOW. PT GOT UP THIS AFTERNOON, INDEPENDENTLY, AND AMBULATED TO RESTROOM. NOW RESTING IN BED, CALL LIGHT IN REACH, DENIES ANY NEEDS AT THIS TIME.
[2025-02-02 19:11] VITALS: BP 116/66
[2025-02-02 21:12] VITALS: BP 101/70
--- NOTE | 2025-02-02 23:03 | NUR ---
RN TO ROOM TO HANG NEW BAG OF FLUIDS. PT REQUESTS NOT TO HAVE ANY MORE FLUIDS VIA IV AT THIS TIME. PT HAS VOIDED MULTIPLE TIMES THIS SHIFT AND THIS RN DISCUSSED WITH HANGER OFF. THIS RN EDUCATED PT ON IMPORTANCE OF IV FLUIDS FOR HYPOTENSION. PT AGREEABLE TO CONTINUE TO DRINK PO FLUIDS AND STAFF WILL RECHECK VITALS AT MIDNIGHT TO ASSESS IF HYPOTENSIVE STILL AND NEED TO RECONNECT FLUIDS VIA IV.
[2025-02-02 23:20] VITALS: BP 112/69
[2025-02-03 04:11] LABS: BASOPHILS ABSOLUTE AUTO 0.01 K/mm3 (0.00-0.23); BASOPHILS PERCENT AUTO 0 % (0-2); EOSINOPHILS ABSOLUTE AUTO 0.31 K/mm3 (0.00-0.68); EOSINOPHILS PERCENT AUTO 4 % (0-6); Hematocrit 23.9 % (33.0-51.0); Hemoglobin 8.3 g/dL (11.5-16.0); IMMATURE GRAN ABSOLUTE AUTO 0.03 K/mm3 (0.00-0.10); IMMATURE GRAN PERCENT AUTO 0 % (0-1); LYMPHOCYTES ABSOLUTE AUTO 1.75 K/mm3 (0.84-5.20); LYMPHOCYTES PERCENT AUTO 25 % (21-46); MONOCYTES ABSOLUTE AUTO 1.02 K/mm3 (0.16-1.47); MONOCYTES PERCENT AUTO 14 % (4-13); Mean Corpuscular HGB Conc 34.7 g/dL (31.5-36.5); Mean Corpuscular Volume 97 fL (80-100); NEUTROPHILS ABSOLUTE AUTO 4.00 K/mm3 (1.96-9.15); NEUTROPHILS PERCENT AUTO 56 % (41-73); NRBC ABSOLUTE 0.00 K/mm3 (0.00-0.02); NRBC Auto 0.0 /100 WBC (0.0-0.2); Platelet Count 198 K/mm3 (150-400); RDW Coefficient Variation 18.8 % (11.7-14.2); RDW Standard Deviation 66.9 fL (35.1-46.3)
[2025-02-03 04:21] VITALS: BP 117/71
[2025-02-03 04:53] LABS: Anion Gap 6.0 mmol/L (3-11); Blood Urea Nitrogen 12.0 mg/dL (8-24); CO2, Blood 26.0 mmol/L (21-32); Calcium, Blood 7.6 mg/dL (8.5-10.1); Chloride, Blood 107.0 mmol/L (98-108); Creatinine, Blood 0.92 mg/dL (0.40-1.00); Glucose, Blood 103.0 mg/dL (70-99); Magnesium, Blood 2.2 mg/dL (1.6-2.4); Phosphorus, Blood 2.0 mg/dL (2.5-4.9); Potassium, Blood 3.8 mmol/L (3.5-5.5); Sodium, Blood 135.0 mmol/L (136-145)
--- NOTE | 2025-02-03 05:07 | NUR ---
SHIFT SUMMARY NO ACUTE EVENTS OVERNIGHT. PT AMBULATING TO INDEPENDENTLY. SEE PREVIOUS NOTE REGARDING IV FLUIDS AND PT REQUESTING THAT NEW BAG NOT INITIATED. PT TOLERATING PO INTAKE AND HAS NO DIZZINESS. PT SALINE LOCKED AT THIS TIME. PT EVENING DOSE OF METOPROLOL HELD DUE TO LOW BLOOD PRESSURE; PT REPORTS HAVING HYPOTENSION AT BASELINE. PT WITH SMALL AMOUNT OF BLOOD VAGINALLY WHEN WIPING AFTER VOIDING AND IN JAMES PAD. PT WITH SMALL AMOUNT OF BROWN OUTPUT TO OSTOMY.
[2025-02-03 07:37] VITALS: BP 108/75
[2025-02-03 16:17] VITALS: BP 132/75
--- NOTE | 2025-02-03 16:50 | NUR ---
SHIFT SUMMARY NO ACUTE CHANGES THIS SHIFT. POD 3 LAP APPY & UNSUCCESSFUL OSTOMY REVERSAL. A&O x4, VSS, CALLS APPROPRIATELY. PAIN CONTROLLED WELL PER EMAR. IND IN ROOM, AMBULATED IN HALLWAY & ROOM SEVERAL TIMES TODAY. LLQ OSTOMY w/SMALL BROWN OUTPUT & GAS, BOWEL TONES HYPOACTIVE, MILD ABD TENDERNESS. TOLERATING REGULAR DIET WELL. PLAN TO DC HOME TOMORROW. CURRENTLY RESTING IN BED w/CALL LIGHT WITHIN REACH.
[2025-02-03] MEDS ORDERED: Potassium Phos/Sodium Phos 250 MG PACK PO SCH (17:00)
[2025-02-03 20:28] VITALS: BP 123/84
[2025-02-04 01:36] VITALS: BP 124/75
[2025-02-04 07:25] VITALS: BP 105/75
[2025-02-04 15:52] VITALS: BP 120/89
--- NOTE | 2025-02-04 17:41 | NUR ---
Pt. is awake in bed when she welcomes my visit. Pt. recognizes this decal maker from a previous hospital visit. Facilitated an update. Pt. verbalized details of disfficult surgeries but does so whe a bouyant spirit. Listen with empathy and a calming presence. Pt. displayed evidence of being resigned to her condition. Consdered matters of nova and belief. Prayed with the Pt. Pt. verbalized gratitude for the spiritual care visit and welcomed this decal maker to return.
--- NOTE | 2025-02-04 18:00 | NUR ---
SHIFT SUMMARY ADMITTED ON 01/31 FOR LAP APPY & UNSUCCESSFUL OSTOMY REVERSAL. A&O x4, VSS. TOLERATING PO INTAKE WELL, NO N/V. STATES FEELING "BLOATED". MINIMAL PAIN TODAY. LAP SITES C/D/I. INDEPENDENT IN ROOM, AMBULATED IN HALLWAY SEVERAL TIMES TODAY. LLQ OSTOMY w/SMALL BROWN LIQUID OUTPUT. CURRENTLY RESTING IN BED w/CALL LIGHT WITHIN REACH.
[2025-02-04 20:04] VITALS: BP 132/81
[2025-02-05 03:44] VITALS: BP 118/75
[2025-02-05 04:08] LABS: Albumin, Blood 2.9 g/dL (3.4-5.0); Anion Gap 6 mmol/L (3-11); Blood Urea Nitrogen 9 mg/dL (8-24); CO2, Blood 27 mmol/L (21-32); Calcium, Blood 8.4 mg/dL (8.5-10.1); Chloride, Blood 109 mmol/L (98-108); Creatinine, Blood 0.93 mg/dL (0.40-1.00); Glucose, Blood 104 mg/dL (70-99); Magnesium, Blood 2.2 mg/dL (1.6-2.4); Phosphorus, Blood 3.0 mg/dL (2.5-4.9); Potassium, Blood 4.4 mmol/L (3.5-5.5); Sodium, Blood 138 mmol/L (136-145)
--- NOTE | 2025-02-05 06:40 | NUR ---
SHIFT SUMMARY POD 4 LAP APPENDECTOMY AND UNSUCCESSFUL OSTOMY REVERSAL. LAP SITES C/D/I. A&O X4. NO ACUTE CHANGES THIS SHIFT. PAIN MANAGED WELL PER EMAR. OSTOMY OUTPUT THIS AM OF SOFT FORMED BROWN STOOL. PT TOLERATING DIET WELL AND DENIES N&V. PT INDEPENDENT IN ROOM. PT RESTING IN BED. NO SIGNS OF DISTRESS NOTED. CALL LIGHT WITHIN REACH.
[2025-02-05 07:27] VITALS: BP 99/74
[2025-02-05] MEDS ORDERED: VANCOCIN HCL250 MG PO (12:51)
[2025-02-05] MEDS ORDERED: Acetaminophen325 M1 PO (12:51)
[2025-02-05 13:11] VITALS: BP 113/63
--- NOTE | 2025-02-05 13:24 | NUR ---
DISCHARGED REVIEWED DC INSTRUCTIONS W/PT; VERBALIZED UNDERSTANDING. PT CHANGED OWN OSTOMY BAG PRIOR TO BEING DISCHARGED. PT LEFT UNIT IN WC W/POSSESSIONS AND DC PAPERWORK IN HAND TO RIDE WAITING OUTSIDE.
== END 2025-02-05 13:24 | disposition home health service (06) | DRG 330 ==
LOC: SURS 06:17 → UNDOADMOB 06:17 → SURS 08:01 → UNDOADMOB 08:01 → SURS 08:01
PROVIDERS: Surgery; ADMIT Surgery
PROC: 0DTJ4ZZ Resection of Appendix, Percutaneous Endoscopic Approach (ICD-10-PCS; 2025-01-31)
PROC: 3E03329 Introduction of Other Anti-infective into Peripheral Vein, Percutaneous Approach (ICD-10-PCS; 2025-01-31)
PROC: 8E0W4CZ Robotic Assisted Procedure of Trunk Region, Percutaneous Endoscopic Approach (ICD-10-PCS; 2025-01-31)
PROC: 0DQ84ZZ Repair Small Intestine, Percutaneous Endoscopic Approach (ICD-10-PCS; 2025-01-31)
PROC: 0DN84ZZ Release Small Intestine, Percutaneous Endoscopic Approach (ICD-10-PCS; principal; 2025-01-31 08:00)
DX: Z43.3 Encounter for attention to colostomy (principal); K56.7 Ileus, unspecified; K66.0 Peritoneal adhesions (postprocedural) (postinfection); I10 Essential (primary) hypertension; K21.9 Gastro-esophageal reflux disease without esophagitis; Z90.710 Acquired absence of both cervix and uterus; Z86.19 Personal history of other infectious and parasitic diseases; Z98.890 Other specified postprocedural states; Z79.899 Other long term (current) drug therapy; Z88.5 Allergy status to narcotic agent; Z88.6 Allergy status to analgesic agent; Z88.8 Allergy status to other drugs, medicaments and biological substances; Z82.3 Family history of stroke
CPT/HCPCS: 36415; 80048; 80069; 82947; 83735; 84100; 85014; 85018; 85025; 85027; 88304; 96374; 96375; 96376; A9270; G0378; J0690; J0780; J1100; J1171; J1644; J1650; J1885; J2405; J2704; J3010; J7120